=== PATIENT | male | born 1935 | race Caucasian/White ===

== ENCOUNTER 2020-06-19 12:56 | Outpatient (REF) | payer MEDICARE, SELFPAY ==
[2020-06-19 13:34] LABS: Basophils Percent Auto 0.5 % (0-2); Eosinophils Absolute Auto 0.1 X10*3/uL (0.0-0.4); Eosinophils Percent Auto 1.6 % (0-4); Hematocrit 40.8 % (42-52); Imm Gran Abs Auto 0.01 X10*3/uL (0.00-0.03); Imm Gran Pct Auto 0.3 % (0.0-0.4); Lymphocytes Absolute Auto 0.6 X10*3/uL (1.2-4.9); Lymphocytes Percent Auto 15.7 % (20-40); MANUAL DIFF FLAG SCAN; Mean Corpuscular HGB Conc 34.3 g/dl (31.0-36.0); Mean Corpuscular Hemoglobin 33.7 pg (27.0-33.0); Mean Corpuscular Volume 98.1 fL (80-98); Mean Platelet Volume 10.1 fL (9.4-12.4); Monocytes Absolute Auto 0.3 X10*3/uL (0.1-1.2); Monocytes Percent Auto 7.8 % (2-11); Neutrophils Absolute Auto 2.8 X10*3/uL (2.0-8.3); Neutrophils Percent Auto 74.1 % (45-73); Red Blood Count 4.16 X10*6/uL (4.60-5.80); Red Cell Distribution Width 15.3 % (11.0-16.0); SCAN SMEAR FLAG 1; White Blood Count 3.8 X10*3/uL (4.8-10.8)
[2020-06-19 13:46] LABS: Platelet Count 71 X10*3/uL (160-400)
[2020-06-19 14:08] LABS: Alanine Aminotransferase 12 U/L (0-40); Albumin Level 4.4 g/dL (3.5-5.0); Alkaline Phosphatase 84 U/L (39-117); Anion Gap 9 (12-20); Aspartate Amino Transferase 20 U/L (5-37); Bilirubin Total 0.8 mg/dL (0.0-1.0); Blood Urea Nitrogen 28 mg/dL (9-16); Calcium 8.9 mg/dL (8.4-10.2); Carbon Dioxide 31 mmol/L (22-29); Chloride 105 mmol/L (96-108); Estimated Glomerular Filt Rate 35; Glucose Random 97 mg/dL (60-115); Lactate Dehydrogenase 238 U/L (118-273); Potassium 5.2 mmol/l (3.3-5.1); Sodium 140 mmol/L (135-145); Total Protein 6.2 g/dL (6.5-8.0)
[2020-06-19 14:17] LABS: SLIDE REVIEW VERIFIED
[2020-06-19 14:18] LABS: Prostate Specific Antigen 2.23 ng/mL (<0.05-4.0)
[2020-06-19 14:31] LABS: Erythrocyte Sedimentation Rate 2 MM/HR (0-15)
== END 2020-06-19 12:57 | disposition home or self-care (01) ==
LOC: HO.LAB 12:56
PROVIDERS: PCP Internal Medicine Medical Oncology; Visit Provider Internal Medicine Medical Oncology
DX: C85.83 Other specified types of non-Hodgkin lymphoma, intra-abdominal lymph nodes (principal); N40.1 Benign prostatic hyperplasia with lower urinary tract symptoms
CPT/HCPCS: 36415; 80053; 83615; 84153; 85025; 85652

== ENCOUNTER 2020-11-06 12:37 | Outpatient (REF) | payer MEDICARE, SELFPAY ==
[2020-11-06 13:19] LABS: Basophils Percent Auto 0.3 % (0-2); Eosinophils Absolute Auto 0.1 X10*3/uL (0.0-0.4); Eosinophils Percent Auto 2.1 % (0-4); Hemoglobin 13.7 g/dl (14.0-18.0); Imm Gran Abs Auto 0.01 X10*3/uL (0.00-0.03); Imm Gran Pct Auto 0.3 % (0.0-0.4); Lymphocytes Absolute Auto 0.5 X10*3/uL (1.2-4.9); Lymphocytes Percent Auto 12.6 % (20-40); MANUAL DIFF FLAG SCAN; Mean Corpuscular HGB Conc 32.6 g/dl (31.0-36.0); Mean Corpuscular Hemoglobin 31.6 pg (27.0-33.0); Mean Corpuscular Volume 96.8 fL (80-98); Mean Platelet Volume 9.8 fL (9.4-12.4); Monocytes Absolute Auto 0.2 X10*3/uL (0.1-1.2); Monocytes Percent Auto 6.3 % (2-11); Neutrophils Percent Auto 78.4 % (45-73); Red Blood Count 4.34 X10*6/uL (4.60-5.80); Red Cell Distribution Width 15.6 % (11.0-16.0); SCAN SMEAR FLAG 1; White Blood Count 3.8 X10*3/uL (4.8-10.8)
[2020-11-06 13:33] LABS: Platelet Count 59 X10*3/uL (160-400)
[2020-11-06 13:53] LABS: Alanine Aminotransferase 12 U/L (0-40); Albumin Level 4.2 g/dL (3.5-5.0); Alkaline Phosphatase 83 U/L (39-117); Anion Gap 12 (12-20); Aspartate Amino Transferase 17 U/L (5-37); Bilirubin Total 0.9 mg/dL (0.0-1.0); Blood Urea Nitrogen 27 mg/dL (9-16); Calcium 8.6 mg/dL (8.4-10.2); Carbon Dioxide 27 mmol/L (22-29); Chloride 107 mmol/L (96-108); Cholesterol 99 mg/dL; Estimated Glomerular Filt Rate 37; Glucose Fasting 108 mg/dL (60-99); HDL Cholesterol 39 mg/dL; LDL Cholesterol Calculated 39 mg/dl; Lactate Dehydrogenase 204 U/L (118-273); Sodium 141 mmol/L (135-145); Total Protein 5.9 g/dL (6.5-8.0); Triglycerides 105 mg/dL; Uric Acid 6.7 mg/dL (3.4-7.0)
[2020-11-06 14:10] LABS: SLIDE REVIEW VERIFIED
[2020-11-06 14:19] LABS: Erythrocyte Sedimentation Rate 2 MM/HR (0-15)
== END 2020-11-06 12:38 | disposition home or self-care (01) ==
LOC: HO.LAB 12:37
PROVIDERS: PCP Internal Medicine Medical Oncology; Visit Provider Internal Medicine Medical Oncology
DX: I10 Essential (primary) hypertension (principal); D69.6 Thrombocytopenia, unspecified; N40.1 Benign prostatic hyperplasia with lower urinary tract symptoms
CPT/HCPCS: 36415; 80053; 80061; 83615; 84550; 85025; 85652

== ENCOUNTER 2020-11-11 08:49 | Outpatient (REF) | payer MEDICARE, OTHER, SELFPAY ==
--- NOTE | ~2020-11-11 | CT_ITS ---
EXAMINATION: CT ABDOMEN AND PELVIS WITHOUT CONTRAST CLINICAL INFORMATION: Lymphoma. COMPARISON: CT abdomen and pelvis 04/24/2020 TECHNIQUE: Multidetector volumetric imaging was performed from the superior aspect of the liver through the pubic symphysis with oral contrast only. Sagittal and coronal reformatted images were obtained on the technologist's workstation. This CT examination was performed using dose optimization techniques as appropriate, variously including the following: *Automated exposure control *Adjustment of mA and/or kV according to patient size (this includes techniques or standardized protocols for targeted exams where dose is matched to indication/reason for exam; i.e. extremities or head) *Use of iterative reconstruction technique DLP: 401 mGy-cm FINDINGS: LUNG BASES: The heart size is normal. Mild pectus excavatum deformity of the chest wall is seen. The lung bases are clear. LIVER, GALLBLADDER, AND BILIARY TREE: The liver is normal in size, shape, and attenuation. No focal hepatic lesion or biliary ductal dilatation is present. The gallbladder has been surgically removed. PANCREAS: Unremarkable. SPLEEN: There is moderate splenomegaly with spleen measuring 18 cm in length. ADRENAL GLANDS: Unremarkable. KIDNEYS AND URETERS: The kidneys are normal in size, shape, and attenuation. No hydronephrosis, hydroureter, or calculi seen. No perinephric stranding. BLADDER: Unremarkable. GASTROINTESTINAL TRACT: There is scattered oral contrast, stool and diffuse diverticuli seen throughout the colon without thickening. The small bowel loops are normal caliber. Appendix is not visualized. There is no free air. There is minimal free fluid in the pelvis. No inflammatory process seen. ABDOMINAL WALL: There is a small umbilical hernia containing fat. LYMPH NODES: Small prominent upper retroperitoneal are noted. They are stable compared to 04/24/2020. VASCULAR: Unremarkable. PELVIC VISCERA: The prostate gland is enlarged. OSSEOUS STRUCTURES: There is grade 1 anterolisthesis L4 over L5 and retrolisthesis grade 1, L5 over S1. There is loss of disc height virtually at every disc level with vacuum disc phenomena. CT/CT abdomen pelvis wo con IMPRESSION: Small upper retroperitoneal lymph nodes are stable. Moderate splenomegaly is stable. Diffuse colonic diverticulosis without diverticulitis. Minimal free fluid in the pelvis similar to the previous study.
[2020-11-11] MEDS: Barium Sulfate Oral (Berry) 450 ML ORAL.SUSP 900 ML PO (11:50)
== END 2020-11-11 08:50 | disposition home or self-care (01) ==
LOC: HO.CT 08:49
PROVIDERS: PCP Internal Medicine Medical Oncology; Visit Provider Internal Medicine Medical Oncology
DX: C85.90 Non-Hodgkin lymphoma, unspecified, unspecified site (principal)
CPT/HCPCS: 74176

== ENCOUNTER 2021-02-19 14:00 | Outpatient (REF) | payer MEDICARE, OTHER, SELFPAY ==
[2021-02-19 14:29] LABS: MANUAL DIFF FLAG NO
[2021-02-19 14:33] LABS: Basophils Percent Auto 0.3 % (0-2); Eosinophils Absolute Auto 0.1 X10*3/uL (0.0-0.4); Hematocrit 44.4 % (42-52); Hemoglobin 14.4 g/dl (14.0-18.0); Imm Gran Abs Auto 0.02 X10*3/uL (0.00-0.03); Imm Gran Pct Auto 0.5 % (0.0-0.4); Lymphocytes Absolute Auto 0.6 X10*3/uL (1.2-4.9); Lymphocytes Percent Auto 15.3 % (20-40); Mean Corpuscular HGB Conc 32.4 g/dl (31.0-36.0); Mean Corpuscular Hemoglobin 30.6 pg (27.0-33.0); Mean Corpuscular Volume 94.5 fL (80-98); Mean Platelet Volume 9.1 fL (9.4-12.4); Monocytes Absolute Auto 0.3 X10*3/uL (0.1-1.2); Monocytes Percent Auto 7.1 % (2-11); Neutrophils Absolute Auto 2.9 X10*3/uL (2.0-8.3); Neutrophils Percent Auto 74.8 % (45-73); Red Cell Distribution Width 14.9 % (11.0-16.0); White Blood Count 3.9 X10*3/uL (4.8-10.8)
[2021-02-19 14:34] LABS: Platelet Count 59 X10*3/uL (160-400)
[2021-02-19 15:00] LABS: Alanine Aminotransferase 11 U/L (0-40); Albumin Level 4.4 g/dL (3.5-5.0); Alkaline Phosphatase 98 U/L (39-117); Anion Gap 13 (12-20); Aspartate Amino Transferase 19 U/L (5-37); Blood Urea Nitrogen 27 mg/dL (9-16); Carbon Dioxide 27 mmol/L (22-29); Chloride 108 mmol/L (96-108); Cholesterol 97 mg/dL; Estimated Glomerular Filt Rate 37; Glucose Fasting 98 mg/dL (60-99); HDL Cholesterol 38 mg/dL; LDL Cholesterol Calculated 46 mg/dl; Potassium 5.3 mmol/L (3.3-5.1); Sodium 143 mmol/L (135-145); Total Protein 6.2 g/dL (6.5-8.0); Triglycerides 66 mg/dL
[2021-02-19 15:08] LABS: Lactate Dehydrogenase 205 U/L (118-273)
[2021-02-19 15:16] LABS: Erythrocyte Sedimentation Rate 2 MM/HR (0-15)
== END 2021-02-19 14:01 | disposition home or self-care (01) ==
LOC: HO.LAB 14:00
PROVIDERS: PCP Internal Medicine Medical Oncology; Visit Provider Internal Medicine Medical Oncology
DX: I10 Essential (primary) hypertension (principal); D69.6 Thrombocytopenia, unspecified; C85.90 Non-Hodgkin lymphoma, unspecified, unspecified site
CPT/HCPCS: 36415; 80053; 80061; 83615; 85025; 85652

== ENCOUNTER 2021-05-22 13:31 | Outpatient (REF) | payer MEDICARE, OTHER, SELFPAY ==
[2021-05-22 14:28] LABS: MANUAL DIFF FLAG NO
[2021-05-22 14:31] LABS: Basophils Percent Auto 0.3 % (0-2); Eosinophils Absolute Auto 0.1 X10*3/uL (0.0-0.4); Eosinophils Percent Auto 1.3 % (0-4); Hematocrit 41.4 % (42-52); Hemoglobin 13.9 g/dl (14.0-18.0); Imm Gran Abs Auto 0.01 X10*3/uL (0.00-0.03); Imm Gran Pct Auto 0.3 % (0.0-0.4); Lymphocytes Absolute Auto 0.6 X10*3/uL (1.2-4.9); Lymphocytes Percent Auto 16.1 % (20-40); Mean Corpuscular HGB Conc 33.6 g/dl (31.0-36.0); Mean Corpuscular Volume 95.4 fL (80-98); Mean Platelet Volume 10.7 fL (9.4-12.4); Monocytes Absolute Auto 0.3 X10*3/uL (0.1-1.2); Monocytes Percent Auto 7.8 % (2-11); Neutrophils Absolute Auto 2.9 X10*3/uL (2.0-8.3); Neutrophils Percent Auto 74.2 % (45-73); Red Blood Count 4.34 X10*6/uL (4.60-5.80); Red Cell Distribution Width 15.5 % (11.0-16.0); White Blood Count 3.8 X10*3/uL (4.8-10.8)
[2021-05-22 14:34] LABS: Platelet Count 59 X10*3/uL (160-400)
[2021-05-22 15:37] LABS: Alanine Aminotransferase 17 U/L (0-40); Albumin Level 4.3 g/dL (3.5-5.0); Alkaline Phosphatase 93 U/L (39-117); Anion Gap 11 (12-20); Aspartate Amino Transferase 22 U/L (5-37); Blood Urea Nitrogen 27 mg/dL (9-16); Calcium 8.7 mg/dL (8.4-10.2); Carbon Dioxide 27 mmol/L (22-29); Chloride 107 mmol/L (96-108); Cholesterol 91 mg/dL; Estimated Glomerular Filt Rate 36; Glucose Fasting 97 mg/dL (60-99); HDL Cholesterol 37 mg/dL; LDL Cholesterol Calculated 43 mg/dl; Lactate Dehydrogenase 223 U/L (118-273); Potassium 4.9 mmol/L (3.3-5.1); Sodium 140 mmol/L (135-145); Total Protein 5.8 g/dL (6.5-8.0); Triglycerides 57 mg/dL; Uric Acid 6.7 mg/dL (3.4-7.0)
[2021-05-22 15:45] LABS: Erythrocyte Sedimentation Rate 2 MM/HR (0-15)
== END 2021-05-22 13:32 | disposition home or self-care (01) ==
LOC: HO.LAB 13:31
PROVIDERS: PCP Internal Medicine Medical Oncology; Visit Provider Internal Medicine Medical Oncology
DX: I10 Essential (primary) hypertension (principal); D69.6 Thrombocytopenia, unspecified; N40.1 Benign prostatic hyperplasia with lower urinary tract symptoms
CPT/HCPCS: 36415; 80053; 80061; 83615; 84550; 85025; 85652

== ENCOUNTER 2021-06-03 12:20 | Outpatient (REF) | payer MEDICARE, OTHER, SELFPAY ==
--- NOTE | ~2021-06-03 | CT_ITS ---
EXAMINATION: CT ABDOMEN AND PELVIS WITHOUT CONTRAST CLINICAL INFORMATION: Lymphoma. COMPARISON: None TECHNIQUE: Multidetector volumetric imaging was performed from the superior aspect of the liver through the pubic symphysis. Sagittal and coronal reformatted images were obtained on the technologist's workstation. This CT examination was performed using dose optimization techniques as appropriate, variously including the following: *Automated exposure control *Adjustment of mA and/or kV according to patient size (this includes techniques or standardized protocols for targeted exams where dose is matched to indication/reason for exam; i.e. extremities or head) *Use of iterative reconstruction technique DLP: 404 mGy-cm FINDINGS: LUNG BASES: Minimal atelectatic changes seen in the right middle lobe. The heart size is normal. There is minimal pericardial effusion. LIVER, GALLBLADDER, AND BILIARY TREE: The liver is normal in size, shape, and attenuation. No focal hepatic lesion or biliary ductal dilatation is present. The gallbladder has been surgically removed. PANCREAS: The pancreas is homogeneous in density and appears unremarkable. SPLEEN: The spleen is significantly enlarged measuring 9 cm in craniocaudad length. There is moderate mass effect and shift of the left kidney towards midline.. ADRENAL GLANDS: Unremarkable. KIDNEYS AND URETERS: The kidneys are normal in size, shape, and attenuation. No hydronephrosis, hydroureter, or calculi seen. No perinephric stranding. The left kidney is shifted to the midline from splenomegaly. BLADDER: The bladder is empty with mild bladder wall thickening seen. GASTROINTESTINAL TRACT: There is diffuse colonic diverticulosis without definite colitis. There is scattered stool in colon. The small bowel loops are normal caliber. Appendix is not seen with certainty. ABDOMINAL WALL: No significant hernia is appreciated. LYMPH NODES: There are numerous lymph nodes seen in the retroperitoneum, similar size and number compared to previous study. VASCULAR: Mild arthroscopic changes of abdominal aorta and common hepatic arteries are noted. PELVIC VISCERA: No free fluid seen. The prostate gland is normal. OSSEOUS STRUCTURES: There are degenerative disc changes throughout lumbar spine with grade 1 anterolisthesis L4-L5. CT/CT abdomen pelvis wo con IMPRESSION: Diffuse colonic diverticulosis without diverticulitis. Diffuse prominent reticular lymph nodes similar to previous study from 11/11/2020. Moderate splenomegaly with shift of kidney towards the midline.
== END 2021-06-03 12:21 | disposition home or self-care (01) ==
LOC: HO.CT 12:20
PROVIDERS: PCP Internal Medicine Medical Oncology; Visit Provider Internal Medicine Medical Oncology
DX: C85.90 Non-Hodgkin lymphoma, unspecified, unspecified site (principal)
CPT/HCPCS: 74176

== ENCOUNTER 2021-09-10 12:49 | Outpatient (REF) | payer MEDICARE, OTHER, SELFPAY ==
[2021-09-10 13:17] LABS: MANUAL DIFF FLAG NO
[2021-09-10 13:51] LABS: Basophils Percent Auto 0.3 % (0-2); Eosinophils Absolute Auto 0.1 X10*3/uL (0.0-0.4); Eosinophils Percent Auto 1.5 % (0-4); Hematocrit 42.5 % (42.0-52.0); Hemoglobin 13.8 g/dl (14.0-18.0); Imm Gran Abs Auto 0.02 X10*3/uL (0.00-0.03); Imm Gran Pct Auto 0.6 % (0.0-0.4); Lymphocytes Absolute Auto 0.6 X10*3/uL (1.2-4.9); Lymphocytes Percent Auto 16.6 % (20-40); Mean Corpuscular HGB Conc 32.5 g/dl (31.0-36.0); Mean Corpuscular Hemoglobin 30.6 pg (27.0-33.0); Mean Corpuscular Volume 94.2 fL (80.0-98.0); Mean Platelet Volume 10.7 fL (9.4-12.4); Monocytes Absolute Auto 0.2 X10*3/uL (0.1-1.2); Monocytes Percent Auto 6.9 % (2-11); Neutrophils Absolute Auto 2.5 x10*3/uL (2.0-8.3); Neutrophils Percent Auto 74.1 % (45-73); Red Blood Count 4.51 X10*6/uL (4.60-5.80); Red Cell Distribution Width 15.2 % (11.0-16.0); White Blood Count 3.3 X10*3/uL (4.8-10.8)
[2021-09-10 13:52] LABS: Platelet Count 62 X10*3/uL (160-400)
[2021-09-10 14:39] LABS: Alanine Aminotransferase 17 U/L (0-40); Albumin Level 4.3 g/dL (3.5-5.0); Alkaline Phosphatase 100 U/L (39-117); Anion Gap 12 (12-20); Aspartate Amino Transferase 22 U/L (5-37); Bilirubin Total 0.9 mg/dL (0.0-1.0); Blood Urea Nitrogen 28 mg/dL (9-16); Calcium 9.2 mg/dL (8.4-10.2); Carbon Dioxide 27 mmol/L (22-29); Chloride 108 mmol/L (96-108); Cholesterol 102 mg/dL; Estimated Glomerular Filt Rate 33; Glucose Fasting 97 mg/dL (60-99); HDL Cholesterol 35 mg/dL; LDL Cholesterol Calculated 53 mg/dl; Lactate Dehydrogenase 221 U/L (118-273); Potassium 4.9 mmol/L (3.3-5.1); Sodium 142 mmol/L (135-145); Total Protein 6.1 g/dL (6.5-8.0); Triglycerides 72 mg/dL
[2021-09-10 14:45] LABS: Erythrocyte Sedimentation Rate 2 MM/HR (0-15); Prostate Specific Antigen 2.01 ng/mL (<0.05-4.0)
== END 2021-09-10 12:50 | disposition home or self-care (01) ==
LOC: HO.LAB 12:49
PROVIDERS: PCP Internal Medicine Medical Oncology; Visit Provider Internal Medicine Medical Oncology
DX: Z12.5 Encounter for screening for malignant neoplasm of prostate (principal); I10 Essential (primary) hypertension; D69.6 Thrombocytopenia, unspecified; C85.83 Other specified types of non-Hodgkin lymphoma, intra-abdominal lymph nodes; N40.1 Benign prostatic hyperplasia with lower urinary tract symptoms; E66.3 Overweight
CPT/HCPCS: 36415; 80053; 80061; 83615; 84153; 85025; 85652

== ENCOUNTER 2021-11-12 14:14 | Outpatient (REF) | payer MEDICARE, OTHER, SELFPAY ==
[2021-11-12 14:39] LABS: MANUAL DIFF FLAG NO
[2021-11-12 14:44] LABS: Basophils Percent Auto 0.4 % (0-2); Eosinophils Percent Auto 1.7 % (0-4); Hematocrit 39.9 % (42.0-52.0); Hemoglobin 12.5 g/dl (14.0-18.0); Lymphocytes Absolute Auto 0.7 X10*3/uL (1.2-4.9); Lymphocytes Percent Auto 32.3 % (20-40); Mean Corpuscular HGB Conc 31.3 g/dl (31.0-36.0); Mean Corpuscular Hemoglobin 29.5 pg (27.0-33.0); Mean Corpuscular Volume 94.1 fL (80.0-98.0); Mean Platelet Volume 9.5 fL (9.4-12.4); Monocytes Absolute Auto 0.2 X10*3/uL (0.1-1.2); Monocytes Percent Auto 9.6 % (2-11); Neutrophils Absolute Auto 1.3 x10*3/uL (2.0-8.3); Red Blood Count 4.24 X10*6/uL (4.60-5.80); Red Cell Distribution Width 15.7 % (11.0-16.0); SCAN SMEAR FLAG 1
[2021-11-12 14:45] LABS: Platelet Count 54 X10*3/uL (160-400); White Blood Count 2.3 X10*3/uL (4.8-10.8)
[2021-11-12 15:17] LABS: Alanine Aminotransferase 15 U/L (0-40); Albumin Level 4.1 g/dL (3.5-5.0); Alkaline Phosphatase 108 U/L (39-117); Anion Gap 11 (12-20); Aspartate Amino Transferase 23 U/L (5-37); Blood Urea Nitrogen 29 mg/dL (9-16); Calcium 8.9 mg/dL (8.4-10.2); Carbon Dioxide 29 mmol/L (22-29); Chloride 106 mmol/L (96-108); Estimated Glomerular Filt Rate 39; Glucose Fasting 108 mg/dL (60-99); HDL Cholesterol 28 mg/dL; Lactate Dehydrogenase 277 U/L (118-273); Sodium 141 mmol/L (135-145); Total Protein 5.9 g/dL (6.5-8.0); Triglycerides 69 mg/dL; Uric Acid 6.5 mg/dL (3.4-7.0)
[2021-11-12 15:23] LABS: Erythrocyte Sedimentation Rate 4 MM/HR (0-15)
[2021-11-12 15:32] LABS: Cholesterol 95 mg/dL; LDL Cholesterol Calculated 54 mg/dl
[2021-11-12 15:38] LABS: PSA,Total (Free>4and<10) 1.96 ng/mL (0.00-4.00)
== END 2021-11-12 14:15 | disposition home or self-care (01) ==
LOC: HO.LAB 14:14
PROVIDERS: PCP Internal Medicine Medical Oncology; Visit Provider Internal Medicine Medical Oncology
DX: I10 Essential (primary) hypertension (principal); D69.6 Thrombocytopenia, unspecified; N40.1 Benign prostatic hyperplasia with lower urinary tract symptoms; Z12.5 Encounter for screening for malignant neoplasm of prostate
CPT/HCPCS: 36415; 80053; 80061; 83615; 84153; 84550; 85025; 85652

== ENCOUNTER 2021-12-03 09:15 | Outpatient (REF) | payer MEDICARE, OTHER, SELFPAY ==
--- NOTE | ~2021-12-03 | CT_ITS ---
EXAMINATION: CT ABDOMEN AND PELVIS WITHOUT CONTRAST CLINICAL INFORMATION: Marginal zone lymphoma COMPARISON: Previous CT of the abdomen and pelvis most recent May 2021 TECHNIQUE: Multidetector volumetric imaging was performed from the superior aspect of the liver through the pubic symphysis. Sagittal and coronal reformatted images were obtained on the technologist's workstation. This CT examination was performed using dose optimization techniques as appropriate, variously including the following: *Automated exposure control *Adjustment of mA and/or kV according to patient size (this includes techniques or standardized protocols for targeted exams where dose is matched to indication/reason for exam; i.e. extremities or head) *Use of iterative reconstruction technique DLP: 430 mGy-cm FINDINGS: LUNG BASES: The visualized lung bases are unremarkable. LIVER, GALLBLADDER, AND BILIARY TREE: The liver is normal in size, shape, and attenuation. No focal hepatic lesion or biliary ductal dilatation is present. The gallbladder has been removed. PANCREAS: Unremarkable. SPLEEN: The spleen is enlarged and measures 21.5 cm in length. This may be slightly increased in size from 19 cm on most recent exam May 2021 this causes mass effect and displaces the left kidney. ADRENAL GLANDS: Unremarkable. KIDNEYS AND URETERS: The kidneys are normal in size, shape, and attenuation. No hydronephrosis, hydroureter, or calculi seen. There is a subcentimeter high attenuation lesion exophytic to the left kidney that is stable and probably represents a hyperdense cyst.. BLADDER: Unremarkable. GASTROINTESTINAL TRACT: There is mild diverticulosis of the colon. No evidence of diverticulitis is seen. The small and large bowel are otherwise unremarkable. The appendix is is not seen. The stomach is not optimally distended. ABDOMINAL WALL: There is a left inguinal hernia containing fat and colon. LYMPH NODES: There is slight interval increase in retroperitoneal lymph nodes. Largest lymph nodes are a left periaortic lymph node measuring 2.3 x 3.1 cm in transverse and longitudinal dimension coronal reconstructed image 71 compared to 1.5 x 2.5 cm on previous exam. There are also small lymph nodes seen surrounding the tail of the pancreas and spleen that appear increased. Largest lymph node measures 1 cm axial image 37 series 3 and is new from previous exam. VASCULAR: There is evidence of atherosclerotic disease. PELVIC VISCERA: The prostate gland is slightly enlarged. There is a new small amount of ascites in the pelvis. OSSEOUS STRUCTURES: 4 and S1. There are degenerative changes of the spine and hip joints. CT/CT abdomen pelvis wo con IMPRESSION: Enlarged spleen and enlarged retroperitoneal lymph nodes slightly increased from most recent exam May 2021. Increasing lymphadenopathy adjacent to the tail the pancreas and spleen. New small amount of ascites in the pelvis. Fleischner guidelines were followed.
--- NOTE | ~2021-12-03 | XR_ITS ---
EXAMINATION: XR CHEST CLINICAL INFORMATION: Marginal zone lymphoma COMPARISON: Previous chest x-ray most recent February 2018 TECHNIQUE: 2 views of the chest were obtained. FINDINGS: The cardiac and mediastinal contours are stable. The lungs are clear. There is no pleural effusion or pneumothorax. There are degenerative changes of the spine. There are surgical clips in the right axilla. XR/XR chest 2V IMPRESSION: No evidence for acute disease in the chest.
[2021-12-03] MEDS: Barium Sulfate Oral (Berry) 450 ML ORAL.SUSP 900 ML PO (11:37)
== END 2021-12-03 09:16 | disposition home or self-care (01) ==
LOC: HO.CT 09:15
PROVIDERS: PCP Internal Medicine Medical Oncology; Visit Provider Internal Medicine Medical Oncology
DX: C85.83 Other specified types of non-Hodgkin lymphoma, intra-abdominal lymph nodes (principal)
CPT/HCPCS: 71046; 74176

== ENCOUNTER 2022-01-25 13:23 | Outpatient (REF) | payer MEDICARE, OTHER, SELFPAY ==
[2022-01-25 13:50] LABS: MANUAL DIFF FLAG NO
[2022-01-25 13:57] LABS: Basophils Percent Auto 0.4 % (0-2); Eosinophils Percent Auto 0.7 % (0-4); Hematocrit 37.6 % (42.0-52.0); Hemoglobin 11.9 g/dl (14.0-18.0); Imm Gran Abs Auto 0.01 X10*3/uL (0.00-0.03); Imm Gran Pct Auto 0.4 % (0.0-0.4); Lymphocytes Absolute Auto 0.5 X10*3/uL (1.2-4.9); Lymphocytes Percent Auto 17.5 % (20-40); Mean Corpuscular HGB Conc 31.6 g/dl (31.0-36.0); Mean Corpuscular Volume 91.7 fL (80.0-98.0); Mean Platelet Volume 9.7 fL (9.4-12.4); Monocytes Absolute Auto 0.2 X10*3/uL (0.1-1.2); Monocytes Percent Auto 7.5 % (2-11); Neutrophils Percent Auto 73.5 % (45-73); Red Cell Distribution Width 15.4 % (11.0-16.0); White Blood Count 2.7 X10*3/uL (4.8-10.8)
[2022-01-25 13:58] LABS: Platelet Count 52 X10*3/uL (160-400)
[2022-01-25 14:27] LABS: Alanine Aminotransferase 20 U/L (0-40); Albumin Level 4.1 g/dL (3.5-5.0); Alkaline Phosphatase 109 U/L (39-117); Anion Gap 11 (12-20); Aspartate Amino Transferase 25 U/L (5-37); Bilirubin Total 0.8 mg/dL (0.0-1.0); Blood Urea Nitrogen 24 mg/dL (9-16); Carbon Dioxide 27 mmol/L (22-29); Chloride 107 mmol/L (96-108); Estimated Glomerular Filt Rate 30; Glucose Random 104 mg/dL (60-115); Lactate Dehydrogenase 241 U/L (118-273); Potassium 5.4 mmol/L (3.3-5.1); Sodium 140 mmol/L (135-145); Total Protein 5.9 g/dL (6.5-8.0)
[2022-01-25 14:44] LABS: Erythrocyte Sedimentation Rate 6 MM/HR (0-15)
== END 2022-01-25 13:24 | disposition home or self-care (01) ==
LOC: HO.LAB 13:23
PROVIDERS: PCP Internal Medicine Medical Oncology; Visit Provider Internal Medicine Medical Oncology
DX: D69.6 Thrombocytopenia, unspecified (principal); C85.83 Other specified types of non-Hodgkin lymphoma, intra-abdominal lymph nodes
CPT/HCPCS: 36415; 80053; 83615; 85025; 85652

== ENCOUNTER 2022-03-29 13:23 | Outpatient (REF) | payer MEDICARE, OTHER, SELFPAY ==
--- NOTE | ~2022-03-29 | CT_ITS ---
EXAMINATION: CT ABDOMEN AND PELVIS WITH CONTRAST CLINICAL INFORMATION: Lymphoma. COMPARISON: CT abdomen 12/03/2021. TECHNIQUE: Multidetector volumetric images were obtained from the superior aspect of the liver through the pubic symphysis following administration 85 mL of Omnipaque 350 intravenous contrast. Sagittal and coronal reformatted images were obtained on the technologist's workstation. Oral contrast: No. This CT examination was performed using dose optimization techniques as appropriate, variously including the following: *Automated exposure control *Adjustment of mA and/or kV according to patient size (this includes techniques or standardized protocols for targeted exams where dose is matched to indication/reason for exam; i.e. extremities or head) *Use of iterative reconstruction technique DLP: 439 mGy-cm FINDINGS: LUNG BASES: The lung bases are clear. LIVER, GALLBLADDER, AND BILIARY TREE: The liver is normal in size, shape, and attenuation. No focal hepatic lesion or intrahepatic biliary ductal dilatation is present. The gallbladder has been surgically removed. The proximal CBD measures 1.2 cm. PANCREAS: Unremarkable. SPLEEN: The spleen is enlarged measuring 18.6 cm in length. Previously, it measured 21.5 cm. ADRENAL GLANDS: Unremarkable. KIDNEYS AND URETERS: The left kidney has been shifted medially and anteriorly from underlying splenomegaly. Otherwise, both kidneys have normal cortical nephrogram. No radiopaque renal calculi, cyst, solid mass, or hydronephrosis is seen. BLADDER: The bladder is nondistended with mild anterior bladder wall thickening. GASTROINTESTINAL TRACT: There is scattered stool, diverticula and gas seen throughout the colon without distention. Oral contrast opacified small bowel loops are normal caliber. The appendix is not seen. ABDOMINAL WALL: No significant hernia is appreciated. LYMPH NODES: Again visualized are retroperitoneal lymph nodes which are smaller in size compared to 02/02/2022. For example, the largest left para-aortic lymph node measures 1.5 cm on axial image 35/3. Previously, the same lymph node measured 2.2 cm on axial image 33/3 CT 12/03/2021. The lymph node inferior to this one in the left para-aortic space measures 1.5 cm. Previously, it measured 1.9 cm on axial image 38/3 on present exam and axial image 36/3 on the previous exam. There are small mesenteric lymph nodes which have improved in size. VASCULAR: There are atherosclerotic changes of abdominal aorta without aneurysmal dilatation. PELVIC VISCERA: There is mild prostate enlargement. The periprostatic fat planes are preserved. Small ascites seen previously has improved. OSSEOUS STRUCTURES: There are degenerative disc changes at all lumbar and lower dorsal spine. There is grade 1 retrolisthesis at L5 over S1 and grade 1 anterolisthesis at L4 over L5. No aggressive lytic or sclerotic process seen. CT/CT abdomen pelvis w con IMPRESSION: Retroperitoneal and mesenteric lymphadenopathy has improved since 12/03/2021. The lymph nodes and tail of pancreas have significantly improved. There is splenomegaly but improved in size since the previous study. Fleischner guidelines were followed.
[2022-03-29] MEDS: Barium Sulfate Oral (Vanilla) 450 ML ORAL.SUSP 900 ML PO (17:37)
[2022-03-29] MEDS: iohexoL 350 MG/ML 100 ML INFUS..BTL IV (17:38)
== END 2022-03-29 13:24 | disposition home or self-care (01) ==
LOC: HO.CT 13:23
PROVIDERS: PCP Internal Medicine Medical Oncology; Visit Provider Internal Medicine
DX: C85.90 Non-Hodgkin lymphoma, unspecified, unspecified site (principal)
CPT/HCPCS: 74177; Q9967

== ENCOUNTER 2022-05-03 13:52 | Outpatient (REF) | payer MEDICARE, OTHER, SELFPAY ==
[2022-05-03 14:16] LABS: MANUAL DIFF FLAG NO
[2022-05-03 15:07] LABS: Basophils Percent Auto 0.5 % (0-2); Eosinophils Absolute Auto 0.1 X10*3/uL (0.0-0.4); Eosinophils Percent Auto 3.1 % (0-4); Hematocrit 37.9 % (42.0-52.0); Hemoglobin 12.5 g/dl (14.0-18.0); Imm Gran Abs Auto 0.06 X10*3/uL (0.00-0.03); Imm Gran Pct Auto 1.4 % (0.0-0.4); Lymphocytes Absolute Auto 0.6 X10*3/uL (1.2-4.9); Lymphocytes Percent Auto 13.2 % (20-40); Mean Corpuscular Hemoglobin 30.3 pg (27.0-33.0); Mean Platelet Volume 9.8 fL (9.4-12.4); Monocytes Absolute Auto 0.3 X10*3/uL (0.1-1.2); Monocytes Percent Auto 6.4 % (2-11); Neutrophils Absolute Auto 3.2 x10*3/uL (2.0-8.3); Neutrophils Percent Auto 75.4 % (45-73); Red Blood Count 4.12 X10*6/uL (4.60-5.80); Red Cell Distribution Width 19.2 % (11.0-16.0); White Blood Count 4.2 X10*3/uL (4.8-10.8)
[2022-05-03 15:19] LABS: Platelet Count 69 X10*3/uL (160-400)
[2022-05-03 15:31] LABS: Alanine Aminotransferase 9 U/L (0-40); Albumin Level 4.1 g/dL (3.5-5.0); Alkaline Phosphatase 99 U/L (39-117); Anion Gap 14 (12-20); Aspartate Amino Transferase 16 U/L (5-37); Blood Urea Nitrogen 26 mg/dL (9-16); Calcium 8.8 mg/dL (8.4-10.2); Carbon Dioxide 28 mmol/L (22-29); Chloride 106 mmol/L (96-108); Estimated Glomerular Filt Rate 38; Glucose Random 119 mg/dL (60-115); Potassium 4.9 mmol/L (3.3-5.1); Sodium 143 mmol/L (135-145); Total Protein 5.7 g/dL (6.5-8.0)
[2022-05-03 16:05] LABS: Erythrocyte Sedimentation Rate 3 MM/HR (0-15)
== END 2022-05-03 13:53 | disposition home or self-care (01) ==
LOC: HO.LAB 13:52
PROVIDERS: PCP Internal Medicine Medical Oncology; Visit Provider Internal Medicine Medical Oncology
DX: Z00.00 Encounter for general adult medical examination without abnormal findings (principal); D69.6 Thrombocytopenia, unspecified; C85.83 Other specified types of non-Hodgkin lymphoma, intra-abdominal lymph nodes
CPT/HCPCS: 36415; 80053; 85025; 85652

== ENCOUNTER 2022-07-09 11:44 | Outpatient (REF) | payer MEDICARE, OTHER, SELFPAY ==
[2022-07-09 11:58] LABS: MANUAL DIFF FLAG NO
[2022-07-09 12:10] LABS: Basophils Percent Auto 0.2 % (0-2); Eosinophils Absolute Auto 0.2 X10*3/uL (0.0-0.4); Eosinophils Percent Auto 2.4 % (0-4); Hematocrit 37.4 % (42.0-52.0); Hemoglobin 12.7 g/dl (14.0-18.0); Imm Gran Abs Auto 0.03 X10*3/uL (0.00-0.03); Imm Gran Pct Auto 0.5 % (0.0-0.4); Lymphocytes Absolute Auto 0.6 X10*3/uL (1.2-4.9); Mean Corpuscular Hemoglobin 32.2 pg (27.0-33.0); Mean Corpuscular Volume 94.7 fL (80.0-98.0); Mean Platelet Volume 8.5 fL (9.4-12.4); Monocytes Absolute Auto 0.4 X10*3/uL (0.1-1.2); Monocytes Percent Auto 5.6 % (2-11); Neutrophils Absolute Auto 5.1 x10*3/uL (2.0-8.3); Neutrophils Percent Auto 81.3 % (45-73); Red Blood Count 3.95 X10*6/uL (4.60-5.80); Red Cell Distribution Width 17.4 % (11.0-16.0); White Blood Count 6.2 X10*3/uL (4.8-10.8)
[2022-07-09 12:12] LABS: Platelet Count 63 X10*3/uL (160-400)
[2022-07-09 12:54] LABS: Erythrocyte Sedimentation Rate 2 MM/HR (0-15)
[2022-07-09 14:36] LABS: Alanine Aminotransferase 12 U/L (0-40); Albumin Level 4.4 g/dL (3.5-5.0); Alkaline Phosphatase 108 U/L (39-117); Anion Gap 16 (12-20); Aspartate Amino Transferase 17 U/L (5-37); Bilirubin Total 1.2 mg/dL (0.0-1.0); Blood Urea Nitrogen 29 mg/dL (9-16); Carbon Dioxide 25 mmol/L (22-29); Chloride 105 mmol/L (96-108); Estimated Glomerular Filt Rate 35; Glucose Random 99 mg/dL (60-115); Lactate Dehydrogenase 225 U/L (118-273); Potassium 5.2 mmol/L (3.3-5.1); Sodium 141 mmol/L (135-145); Total Protein 6.1 g/dL (6.5-8.0)
== END 2022-07-09 11:45 | disposition home or self-care (01) ==
LOC: HO.LAB 11:44
PROVIDERS: PCP Internal Medicine Medical Oncology; Visit Provider Internal Medicine Medical Oncology
DX: I10 Essential (primary) hypertension (principal); D69.6 Thrombocytopenia, unspecified
CPT/HCPCS: 36415; 80053; 83615; 85025; 85652

== ENCOUNTER 2022-09-08 15:03 | Outpatient (REF) | payer MEDICARE, OTHER, SELFPAY ==
[2022-09-08 16:00] LABS: Basophils Percent Auto 0.3 % (0-2); Hematocrit 38.3 % (42.0-52.0); Mean Platelet Volume 9.8 fL (9.4-12.4); PLT CLUMP 1; Red Cell Distribution Width 17.2 % (11.0-16.0); SCAN SMEAR FLAG 1
[2022-09-08 16:02] LABS: Eosinophils Absolute Auto 0.1 X10*3/uL (0.0-0.4); Eosinophils Percent Auto 1.9 % (0-4); Hemoglobin 12.7 g/dl (14.0-18.0); Imm Gran Abs Auto 0.02 X10*3/uL (0.00-0.03); Imm Gran Pct Auto 0.3 % (0.0-0.4); Lymphocytes Absolute Auto 0.5 X10*3/uL (1.2-4.9); Lymphocytes Percent Auto 8.6 % (20-40); Mean Corpuscular HGB Conc 33.2 g/dl (31.0-36.0); Mean Corpuscular Hemoglobin 31.8 pg (27.0-33.0); Mean Corpuscular Volume 95.8 fL (80.0-98.0); Monocytes Absolute Auto 0.4 X10*3/uL (0.1-1.2); Monocytes Percent Auto 6.1 % (2-11); Neutrophils Absolute Auto 4.9 x10*3/uL (2.0-8.3); Neutrophils Percent Auto 82.8 % (45-73)
[2022-09-08 16:12] LABS: MANUAL DIFF FLAG NO; Platelet Count 88 X10*3/uL (160-400); White Blood Count 5.9 X10*3/uL (4.8-10.8)
[2022-09-08 16:26] LABS: Alanine Aminotransferase 8 U/L (0-40); Albumin Level 4.2 g/dL (3.5-5.0); Alkaline Phosphatase 107 U/L (39-117); Anion Gap 11 (12-20); Aspartate Amino Transferase 15 U/L (5-37); Bilirubin Total 1.1 mg/dL (0.0-1.0); Blood Urea Nitrogen 33 mg/dL (9-16); Calcium 8.9 mg/dL (8.4-10.2); Carbon Dioxide 28 mmol/L (22-29); Chloride 108 mmol/L (96-108); Estimated Glomerular Filt Rate 38; Glucose Random 124 mg/dL (60-115); Lactate Dehydrogenase 226 U/L (118-273); Potassium 4.6 mmol/L (3.3-5.1); Sodium 142 mmol/L (135-145); Total Protein 5.9 g/dL (6.5-8.0)
[2022-09-08 16:57] LABS: Erythrocyte Sedimentation Rate 5 MM/HR (0-15)
== END 2022-09-08 15:04 | disposition home or self-care (01) ==
LOC: HO.LAB 15:03
PROVIDERS: PCP Internal Medicine Medical Oncology; Visit Provider Internal Medicine Medical Oncology
DX: D69.6 Thrombocytopenia, unspecified (principal); D61.818 Other pancytopenia; C85.83 Other specified types of non-Hodgkin lymphoma, intra-abdominal lymph nodes
CPT/HCPCS: 36415; 80053; 83615; 85025; 85652

== ENCOUNTER 2022-11-12 14:04 | Outpatient (REF) | payer MEDICARE, OTHER, SELFPAY ==
[2022-11-12 14:16] LABS: MANUAL DIFF FLAG NO
[2022-11-12 15:04] LABS: Basophils Percent Auto 0.4 % (0-2); Eosinophils Absolute Auto 0.1 X10*3/uL (0.0-0.4); Eosinophils Percent Auto 2.1 % (0-4); Hematocrit 43.1 % (42.0-52.0); Hemoglobin 14.4 g/dl (14.0-18.0); Imm Gran Abs Auto 0.03 X10*3/uL (0.00-0.03); Imm Gran Pct Auto 0.4 % (0.0-0.4); Lymphocytes Absolute Auto 0.9 X10*3/uL (1.2-4.9); Lymphocytes Percent Auto 13.2 % (20-40); Mean Corpuscular HGB Conc 33.4 g/dl (31.0-36.0); Mean Corpuscular Hemoglobin 31.1 pg (27.0-33.0); Mean Corpuscular Volume 93.1 fL (80.0-98.0); Mean Platelet Volume 10.2 fL (9.4-12.4); Monocytes Absolute Auto 0.6 X10*3/uL (0.1-1.2); Monocytes Percent Auto 8.1 % (2-11); Neutrophils Absolute Auto 5.2 x10*3/uL (2.0-8.3); Neutrophils Percent Auto 75.8 % (45-73); Platelet Count 79 X10*3/uL (160-400); Red Blood Count 4.63 X10*6/uL (4.60-5.80); Red Cell Distribution Width 16.5 % (11.0-16.0); White Blood Count 6.8 X10*3/uL (4.8-10.8)
[2022-11-12 15:48] LABS: Erythrocyte Sedimentation Rate 2 MM/HR (0-15)
[2022-11-12 16:10] LABS: Alanine Aminotransferase 11 U/L (0-40); Albumin Level 4.2 g/dL (3.5-5.0); Alkaline Phosphatase 121 U/L (39-117); Anion Gap 13 (12-20); Aspartate Amino Transferase 18 U/L (5-37); Bilirubin Total 1.1 mg/dL (0.0-1.0); Blood Urea Nitrogen 32 mg/dL (9-16); Calcium 8.5 mg/dL (8.4-10.2); Carbon Dioxide 27 mmol/L (22-29); Chloride 107 mmol/L (96-108); Estimated Glomerular Filt Rate 41; Glucose Fasting 76 mg/dL (60-99); Lactate Dehydrogenase 205 U/L (118-273); Potassium 4.8 mmol/L (3.3-5.1); Sodium 142 mmol/L (135-145); Total Protein 5.9 g/dL (6.5-8.0)
== END 2022-11-12 14:05 | disposition home or self-care (01) ==
LOC: HO.LAB 14:04
PROVIDERS: PCP Internal Medicine Medical Oncology; Visit Provider Internal Medicine Medical Oncology
DX: I10 Essential (primary) hypertension (principal); C85.83 Other specified types of non-Hodgkin lymphoma, intra-abdominal lymph nodes
CPT/HCPCS: 36415; 80053; 83615; 85025; 85652

== ENCOUNTER 2023-01-11 13:08 | Outpatient (REF) | payer MEDICARE, OTHER, SELFPAY ==
[2023-01-11 13:25] LABS: MANUAL DIFF FLAG NO
[2023-01-11 14:56] LABS: Basophils Percent Auto 0.5 % (0-2); Eosinophils Absolute Auto 0.1 X10*3/uL (0.0-0.4); Eosinophils Percent Auto 1.9 % (0-4); Hematocrit 41.8 % (42.0-52.0); Hemoglobin 14.2 g/dl (14.0-18.0); Imm Gran Abs Auto 0.02 X10*3/uL (0.00-0.03); Imm Gran Pct Auto 0.3 % (0.0-0.4); Lymphocytes Absolute Auto 0.8 X10*3/uL (1.2-4.9); Lymphocytes Percent Auto 12.2 % (20-40); Mean Corpuscular Hemoglobin 32.1 pg (27.0-33.0); Mean Corpuscular Volume 94.4 fL (80.0-98.0); Mean Platelet Volume 9.9 fL (9.4-12.4); Monocytes Absolute Auto 0.5 X10*3/uL (0.1-1.2); Monocytes Percent Auto 7.5 % (2-11); Neutrophils Absolute Auto 4.9 x10*3/uL (2.0-8.3); Neutrophils Percent Auto 77.6 % (45-73); Red Blood Count 4.43 X10*6/uL (4.60-5.80); Red Cell Distribution Width 16.7 % (11.0-16.0); White Blood Count 6.3 X10*3/uL (4.8-10.8)
[2023-01-11 14:57] LABS: Platelet Count 78 X10*3/uL (160-400)
[2023-01-11 15:49] LABS: Alanine Aminotransferase 11 U/L (0-40); Albumin Level 4.1 g/dL (3.5-5.0); Alkaline Phosphatase 107 U/L (39-117); Anion Gap 15 (12-20); Aspartate Amino Transferase 15 U/L (5-37); Bilirubin Total 0.9 mg/dL (0.0-1.0); Blood Urea Nitrogen 34 mg/dL (9-16); Carbon Dioxide 27 mmol/L (22-29); Chloride 107 mmol/L (96-108); Estimated Glomerular Filt Rate 37; Glucose Random 77 mg/dL (60-115); Potassium 4.6 mmol/L (3.3-5.1); Sodium 144 mmol/L (135-145); Total Protein 5.8 g/dL (6.5-8.0)
[2023-01-11 15:56] LABS: Erythrocyte Sedimentation Rate 2 MM/HR (0-15)
== END 2023-01-11 13:09 | disposition home or self-care (01) ==
LOC: HO.LAB 13:08
PROVIDERS: PCP Internal Medicine Medical Oncology; Visit Provider Internal Medicine Medical Oncology
DX: D69.6 Thrombocytopenia, unspecified (principal); C85.83 Other specified types of non-Hodgkin lymphoma, intra-abdominal lymph nodes
CPT/HCPCS: 36415; 80053; 85025; 85652

== ENCOUNTER 2023-04-11 15:25 | Outpatient (REF) | payer MEDICARE, OTHER, SELFPAY ==
[2023-04-11 15:40] LABS: MANUAL DIFF FLAG NO
[2023-04-11 16:06] LABS: Basophils Percent Auto 0.3 % (0-2); Eosinophils Absolute Auto 0.1 X10*3/uL (0.0-0.4); Eosinophils Percent Auto 1.4 % (0-4); Hematocrit 41.2 % (42.0-52.0); Hemoglobin 13.5 g/dl (14.0-18.0); Imm Gran Abs Auto 0.03 X10*3/uL (0.00-0.03); Imm Gran Pct Auto 0.4 % (0.0-0.4); Immature Retic Fraction 17.5 % (2.3-13.4); Lymphocytes Absolute Auto 0.6 X10*3/uL (1.2-4.9); Lymphocytes Percent Auto 8.2 % (20-40); Mean Corpuscular HGB Conc 32.8 g/dl (31.0-36.0); Mean Corpuscular Hemoglobin 30.7 pg (27.0-33.0); Mean Corpuscular Volume 93.6 fL (80.0-98.0); Mean Platelet Volume 9.4 fL (9.4-12.4); Monocytes Absolute Auto 0.5 X10*3/uL (0.1-1.2); Monocytes Percent Auto 7.1 % (2-11); Neutrophils Absolute Auto 5.9 x10*3/uL (2.0-8.3); Neutrophils Percent Auto 82.6 % (45-73); Red Cell Distribution Width 17.3 % (11.0-16.0); Retic HGB Equivalent 32.3 pg (30.0-35.0); Reticulocyte Percent 3.2 % (0.5-1.8); White Blood Count 7.2 X10*3/uL (4.8-10.8)
[2023-04-11 16:07] LABS: Platelet Count 93 X10*3/uL (160-400)
[2023-04-11 16:57] LABS: Alanine Aminotransferase 11 U/L (0-40); Albumin Level 4.2 g/dL (3.5-5.0); Alkaline Phosphatase 110 U/L (39-117); Anion Gap 13 (12-20); Aspartate Amino Transferase 16 U/L (5-37); Bilirubin Total 0.8 mg/dL (0.0-1.0); Blood Urea Nitrogen 27 mg/dL (9-16); Calcium 8.8 mg/dL (8.4-10.2); Carbon Dioxide 26 mmol/L (22-29); Chloride 108 mmol/L (96-108); Estimated Glomerular Filt Rate 39; Glucose Random 93 mg/dL (60-115); Lactate Dehydrogenase 236 U/L (118-273); Potassium 4.9 mmol/L (3.3-5.1); Sodium 142 mmol/L (135-145); Total Protein 6.3 g/dL (6.5-8.0)
[2023-04-11 17:11] LABS: Erythrocyte Sedimentation Rate 2 MM/HR (0-15)
== END 2023-04-11 15:26 | disposition home or self-care (01) ==
LOC: HO.LAB 15:25
PROVIDERS: PCP Internal Medicine Medical Oncology; Visit Provider Internal Medicine Medical Oncology
DX: C85.83 Other specified types of non-Hodgkin lymphoma, intra-abdominal lymph nodes (principal); I10 Essential (primary) hypertension; D69.6 Thrombocytopenia, unspecified; D61.818 Other pancytopenia
CPT/HCPCS: 36415; 80053; 83615; 85025; 85045; 85652

== ENCOUNTER 2023-07-13 14:17 | Outpatient (REF) | payer MEDICARE, OTHER, SELFPAY ==
[2023-07-13 14:31] LABS: MANUAL DIFF FLAG NO
[2023-07-13 14:59] LABS: Basophils Percent Auto 0.5 % (0-2); Eosinophils Absolute Auto 0.1 X10*3/uL (0.0-0.4); Eosinophils Percent Auto 2.1 % (0-4); Hematocrit 40.2 % (42.0-52.0); Hemoglobin 13.4 g/dl (14.0-18.0); Imm Gran Abs Auto 0.03 X10*3/uL (0.00-0.03); Imm Gran Pct Auto 0.5 % (0.0-0.4); Lymphocytes Absolute Auto 0.7 X10*3/uL (1.2-4.9); Lymphocytes Percent Auto 12.7 % (20-40); Mean Corpuscular HGB Conc 33.3 g/dl (31.0-36.0); Mean Corpuscular Hemoglobin 31.6 pg (27.0-33.0); Mean Corpuscular Volume 94.8 fL (80.0-98.0); Mean Platelet Volume 9.9 fL (9.4-12.4); Monocytes Absolute Auto 0.5 X10*3/uL (0.1-1.2); Monocytes Percent Auto 7.7 % (2-11); Neutrophils Absolute Auto 4.5 x10*3/uL (2.0-8.3); Neutrophils Percent Auto 76.5 % (45-73); Red Blood Count 4.24 X10*6/uL (4.60-5.80); Red Cell Distribution Width 16.9 % (11.0-16.0); White Blood Count 5.8 X10*3/uL (4.8-10.8)
[2023-07-13 15:00] LABS: Platelet Count 79 X10*3/uL (160-400)
[2023-07-13 15:58] LABS: Alanine Aminotransferase 11 U/L (0-40); Albumin Level 4.1 g/dL (3.5-5.0); Alkaline Phosphatase 108 U/L (39-117); Anion Gap 11 (12-20); Aspartate Amino Transferase 17 U/L (5-37); Bilirubin Total 0.7 mg/dL (0.0-1.0); Blood Urea Nitrogen 26 mg/dL (9-16); Calcium 8.7 mg/dL (8.4-10.2); Carbon Dioxide 29 mmol/L (22-29); Chloride 108 mmol/L (96-108); Estimated Glomerular Filt Rate 38; Glucose Random 117 mg/dL (60-115); Potassium 4.6 mmol/L (3.3-5.1); Sodium 143 mmol/L (135-145)
[2023-07-13 16:06] LABS: Prostate Specific Antigen 3.75 ng/mL (<0.05-4.0)
[2023-07-13 16:07] LABS: Lactate Dehydrogenase 204 U/L (118-273)
== END 2023-07-13 14:18 | disposition home or self-care (01) ==
LOC: HO.LAB 14:17
PROVIDERS: PCP Internal Medicine Medical Oncology; Visit Provider Internal Medicine Medical Oncology
DX: Z00.00 Encounter for general adult medical examination without abnormal findings (principal); I10 Essential (primary) hypertension; N40.1 Benign prostatic hyperplasia with lower urinary tract symptoms; E66.3 Overweight; Z12.5 Encounter for screening for malignant neoplasm of prostate
CPT/HCPCS: 36415; 80053; 83615; 84153; 85025

== ENCOUNTER 2023-09-16 13:47 | Outpatient (REF) | payer MEDICARE, OTHER, SELFPAY ==
[2023-09-16 14:00] LABS: MANUAL DIFF FLAG NO
[2023-09-16 14:31] LABS: Basophils Percent Auto 0.3 % (0-2); Eosinophils Absolute Auto 0.1 X10*3/uL (0.0-0.4); Eosinophils Percent Auto 1.6 % (0-4); Hematocrit 43.9 % (42.0-52.0); Hemoglobin 14.3 g/dl (14.0-18.0); Imm Gran Abs Auto 0.03 X10*3/uL (0.00-0.03); Imm Gran Pct Auto 0.5 % (0.0-0.4); Lymphocytes Absolute Auto 0.8 X10*3/uL (1.2-4.9); Lymphocytes Percent Auto 12.5 % (20-40); Mean Corpuscular HGB Conc 32.6 g/dl (31.0-36.0); Mean Corpuscular Hemoglobin 30.3 pg (27.0-33.0); Monocytes Absolute Auto 0.5 X10*3/uL (0.1-1.2); Monocytes Percent Auto 7.7 % (2-11); Neutrophils Percent Auto 77.4 % (45-73); Red Blood Count 4.72 X10*6/uL (4.60-5.80); White Blood Count 6.4 X10*3/uL (4.8-10.8)
[2023-09-16 14:33] LABS: Platelet Count 79 X10*3/uL (160-400)
[2023-09-16 15:17] LABS: Erythrocyte Sedimentation Rate 2 MM/HR (0-15)
[2023-09-16 15:30] LABS: Alanine Aminotransferase 13 U/L (0-40); Albumin Level 4.3 g/dL (3.5-5.0); Alkaline Phosphatase 110 U/L (39-117); Anion Gap 12 (12-20); Aspartate Amino Transferase 16 U/L (5-37); Bilirubin Total 0.8 mg/dL (0.0-1.0); Blood Urea Nitrogen 33 mg/dL (9-16); Calcium 8.9 mg/dL (8.4-10.2); Carbon Dioxide 27 mmol/L (22-29); Chloride 108 mmol/L (96-108); Estimated Glomerular Filt Rate 40; Glucose Random 96 mg/dL (60-115); Potassium 4.6 mmol/L (3.3-5.1); Sodium 142 mmol/L (135-145); Total Protein 6.2 g/dL (6.5-8.0); Uric Acid 6.7 mg/dL (3.4-7.0)
== END 2023-09-16 13:48 | disposition home or self-care (01) ==
LOC: HO.LAB 13:47
PROVIDERS: PCP Internal Medicine Medical Oncology; Visit Provider Internal Medicine Medical Oncology
DX: C85.83 Other specified types of non-Hodgkin lymphoma, intra-abdominal lymph nodes (principal); B02.29 Other postherpetic nervous system involvement; D69.6 Thrombocytopenia, unspecified; E66.3 Overweight
CPT/HCPCS: 36415; 80053; 84550; 85025; 85652

== ENCOUNTER 2024-02-01 13:30 | Outpatient (REF) | payer MEDICARE, OTHER, SELFPAY ==
[2024-02-01 13:49] LABS: MANUAL DIFF FLAG NO
[2024-02-01 14:18] LABS: Basophils Percent Auto 0.2 % (0-2); Eosinophils Absolute Auto 0.1 X10*3/uL (0.0-0.4); Eosinophils Percent Auto 2.2 % (0-4); Hematocrit 41.7 % (42.0-52.0); Hemoglobin 13.6 g/dl (14.0-18.0); Imm Gran Abs Auto 0.02 X10*3/uL (0.00-0.03); Imm Gran Pct Auto 0.4 % (0.0-0.4); Lymphocytes Absolute Auto 0.6 X10*3/uL (1.2-4.9); Lymphocytes Percent Auto 12.6 % (20-40); Mean Corpuscular HGB Conc 32.6 g/dl (31.0-36.0); Mean Corpuscular Hemoglobin 30.6 pg (27.0-33.0); Mean Corpuscular Volume 93.7 fL (80.0-98.0); Mean Platelet Volume 9.3 fL (9.4-12.4); Monocytes Absolute Auto 0.3 X10*3/uL (0.1-1.2); Monocytes Percent Auto 5.7 % (2-11); Neutrophils Percent Auto 78.9 % (45-73); Red Blood Count 4.45 X10*6/uL (4.60-5.80); Red Cell Distribution Width 15.9 % (11.0-16.0); White Blood Count 5.1 X10*3/uL (4.8-10.8)
[2024-02-01 14:19] LABS: Platelet Count 70 X10*3/uL (160-400)
[2024-02-01 14:53] LABS: Erythrocyte Sedimentation Rate 2 MM/HR (0-15)
[2024-02-01 15:12] LABS: Alanine Aminotransferase 13 U/L (0-40); Albumin Level 4.1 g/dL (3.5-5.0); Alkaline Phosphatase 107 U/L (39-117); Anion Gap 14 (12-20); Aspartate Amino Transferase 16 U/L (5-37); Bilirubin Total 0.6 mg/dL (0.0-1.0); Blood Urea Nitrogen 21 mg/dL (9-16); Carbon Dioxide 26 mmol/L (22-29); Chloride 110 mmol/L (96-108); Estimated Glomerular Filt Rate 38; Glucose Random 129 mg/dL (60-115); Lactate Dehydrogenase 194 U/L (118-273); Potassium 4.5 mmol/L (3.3-5.1); Sodium 145 mmol/L (135-145); Total Protein 5.9 g/dL (6.5-8.0); Uric Acid 6.6 mg/dL (3.4-7.0)
[2024-02-01 15:25] LABS: Prostate Specific Antigen 3.52 ng/mL (<0.05-4.0)
== END 2024-02-01 13:31 | disposition home or self-care (01) ==
LOC: HO.LAB 13:30
PROVIDERS: PCP Internal Medicine Medical Oncology; Visit Provider Internal Medicine Medical Oncology
DX: Z12.5 Encounter for screening for malignant neoplasm of prostate (principal); I10 Essential (primary) hypertension; M10.9 Gout, unspecified; N40.1 Benign prostatic hyperplasia with lower urinary tract symptoms; E66.3 Overweight
CPT/HCPCS: 36415; 80053; 83615; 84153; 84550; 85025; 85652

== ENCOUNTER 2024-04-12 13:55 | Outpatient (REF) | payer MEDICARE, OTHER, SELFPAY ==
[2024-04-12 14:17] LABS: MANUAL DIFF FLAG NO
[2024-04-12 15:08] LABS: Basophils Percent Auto 0.2 % (0-2); Eosinophils Absolute Auto 0.1 X10*3/uL (0.0-0.4); Hematocrit 41.1 % (42.0-52.0); Hemoglobin 13.6 g/dl (14.0-18.0); Imm Gran Abs Auto 0.01 X10*3/uL (0.00-0.03); Imm Gran Pct Auto 0.2 % (0.0-0.4); Lymphocytes Absolute Auto 0.7 X10*3/uL (1.2-4.9); Lymphocytes Percent Auto 13.5 % (20-40); Mean Corpuscular HGB Conc 33.1 g/dl (31.0-36.0); Mean Corpuscular Hemoglobin 30.8 pg (27.0-33.0); Mean Platelet Volume 10.6 fL (9.4-12.4); Monocytes Absolute Auto 0.4 X10*3/uL (0.1-1.2); Monocytes Percent Auto 7.3 % (2-11); Neutrophils Absolute Auto 3.9 x10*3/uL (2.0-8.3); Neutrophils Percent Auto 77.8 % (45-73); Red Blood Count 4.42 X10*6/uL (4.60-5.80); Red Cell Distribution Width 15.6 % (11.0-16.0)
[2024-04-12 15:09] LABS: Platelet Count 68 X10*3/uL (160-400)
[2024-04-12 15:23] LABS: Alanine Aminotransferase 16 U/L (0-40); Albumin Level 4.2 g/dL (3.5-5.0); Alkaline Phosphatase 106 U/L (39-117); Anion Gap 13 (12-20); Aspartate Amino Transferase 17 U/L (5-37); Bilirubin Total 0.8 mg/dL (0.0-1.0); Blood Urea Nitrogen 32 mg/dL (9-16); Calcium 9.5 mg/dL (8.4-10.2); Carbon Dioxide 27 mmol/L (22-29); Chloride 107 mmol/L (96-108); Cholesterol 88 mg/dL (<200); Estimated Glomerular Filt Rate 34; Glucose Fasting 101 mg/dL (60-99); HDL Cholesterol 37 mg/dL (>40); LDL Cholesterol Calculated 37 mg/dL (<100); Sodium 142 mmol/L (135-145); Total Protein 6.2 g/dL (6.5-8.0); Triglycerides 73 mg/dL (<150); Uric Acid 6.5 mg/dL (3.4-7.0)
== END 2024-04-12 13:56 | disposition home or self-care (01) ==
LOC: HO.LAB 13:55
PROVIDERS: PCP Internal Medicine Medical Oncology; Visit Provider Internal Medicine Medical Oncology
DX: C85.83 Other specified types of non-Hodgkin lymphoma, intra-abdominal lymph nodes (principal); I10 Essential (primary) hypertension; D69.6 Thrombocytopenia, unspecified; M10.9 Gout, unspecified
CPT/HCPCS: 36415; 80053; 80061; 84550; 85025

== ENCOUNTER 2024-07-17 11:48 | Outpatient (REF) | payer MEDICARE, OTHER, SELFPAY ==
[2024-07-17 12:15] LABS: MANUAL DIFF FLAG NO
[2024-07-17 12:56] LABS: Basophils Percent Auto 0.4 % (0-2); Eosinophils Absolute Auto 0.1 X10*3/uL (0.0-0.4); Eosinophils Percent Auto 0.9 % (0-4); Hematocrit 37.7 % (42.0-52.0); Hemoglobin 12.5 g/dl (14.0-18.0); Imm Gran Abs Auto 0.03 X10*3/uL (0.00-0.03); Imm Gran Pct Auto 0.6 % (0.0-0.4); Lymphocytes Absolute Auto 0.6 X10*3/uL (1.2-4.9); Lymphocytes Percent Auto 11.5 % (20-40); Mean Corpuscular HGB Conc 33.2 g/dl (31.0-36.0); Mean Corpuscular Hemoglobin 30.9 pg (27.0-33.0); Mean Corpuscular Volume 93.3 fL (80.0-98.0); Mean Platelet Volume 10.3 fL (9.4-12.4); Monocytes Absolute Auto 0.4 X10*3/uL (0.1-1.2); Monocytes Percent Auto 6.7 % (2-11); Neutrophils Absolute Auto 4.3 x10*3/uL (2.0-8.3); Neutrophils Percent Auto 79.9 % (45-73); Red Blood Count 4.04 X10*6/uL (4.60-5.80); Red Cell Distribution Width 16.1 % (11.0-16.0); White Blood Count 5.4 X10*3/uL (4.8-10.8)
[2024-07-17 12:58] LABS: Platelet Count 70 X10*3/uL (160-400)
[2024-07-17 13:33] LABS: Alanine Aminotransferase 13 U/L (0-40); Albumin Level 4.1 g/dL (3.5-5.0); Alkaline Phosphatase 110 U/L (39-117); Anion Gap 13 (12-20); Aspartate Amino Transferase 27 U/L (5-37); Blood Urea Nitrogen 28 mg/dL (9-16); Calcium 9.3 mg/dL (8.4-10.2); Carbon Dioxide 26 mmol/L (22-29); Chloride 106 mmol/L (96-108); Cholesterol 95 mg/dL (<200); Estimated Glomerular Filt Rate 44; Glucose Fasting 103 mg/dL (60-99); HDL Cholesterol 33 mg/dL (>40); LDL Cholesterol Calculated 41 mg/dL (<100); Lactate Dehydrogenase 221 U/L (118-273); Potassium 4.9 mmol/L (3.3-5.1); Sodium 140 mmol/L (135-145); Total Protein 6.1 g/dL (6.5-8.0); Triglycerides 105 mg/dL (<150)
[2024-07-17 13:48] LABS: Prostate Specific Antigen 3.99 ng/mL (<0.05-4.0)
== END 2024-07-17 11:49 | disposition home or self-care (01) ==
LOC: HO.LAB 11:48
PROVIDERS: PCP Internal Medicine Medical Oncology; Visit Provider Internal Medicine Medical Oncology
DX: Z00.00 Encounter for general adult medical examination without abnormal findings (principal); C85.83 Other specified types of non-Hodgkin lymphoma, intra-abdominal lymph nodes; I10 Essential (primary) hypertension; M10.9 Gout, unspecified; N40.1 Benign prostatic hyperplasia with lower urinary tract symptoms; E66.3 Overweight; Z12.5 Encounter for screening for malignant neoplasm of prostate
CPT/HCPCS: 36415; 80053; 80061; 83615; 84153; 84550; 85025

== ENCOUNTER 2024-11-26 13:48 | Outpatient (REF) | payer MEDICARE, OTHER, SELFPAY ==
[2024-11-26 14:01] LABS: MANUAL DIFF FLAG NO
[2024-11-26 14:32] LABS: Basophils Percent Auto 0.2 % (0-2); Eosinophils Absolute Auto 0.1 X10*3/uL (0.0-0.4); Eosinophils Percent Auto 1.7 % (0-4); Hematocrit 40.4 % (42.0-52.0); Hemoglobin 13.3 g/dl (14.0-18.0); Imm Gran Abs Auto 0.03 X10*3/uL (0.00-0.03); Imm Gran Pct Auto 0.6 % (0.0-0.4); Lymphocytes Absolute Auto 0.8 X10*3/uL (1.2-4.9); Lymphocytes Percent Auto 15.8 % (20-40); Mean Corpuscular HGB Conc 32.9 g/dl (31.0-36.0); Mean Corpuscular Hemoglobin 30.6 pg (27.0-33.0); Mean Corpuscular Volume 92.9 fL (80.0-98.0); Mean Platelet Volume 9.4 fL (9.4-12.4); Monocytes Absolute Auto 0.3 X10*3/uL (0.1-1.2); Monocytes Percent Auto 6.7 % (2-11); Neutrophils Absolute Auto 3.6 x10*3/uL (2.0-8.3); Red Blood Count 4.35 X10*6/uL (4.60-5.80); Red Cell Distribution Width 16.6 % (11.0-16.0); White Blood Count 4.8 X10*3/uL (4.8-10.8)
[2024-11-26 14:33] LABS: Platelet Count 66 X10*3/uL (160-400)
[2024-11-26 15:11] LABS: Alanine Aminotransferase 14 U/L (0-40); Albumin Level 4.1 g/dL (3.5-5.0); Alkaline Phosphatase 117 U/L (39-117); Anion Gap 11 (12-20); Aspartate Amino Transferase 21 U/L (5-37); Bilirubin Total 0.9 mg/dL (0.0-1.0); Blood Urea Nitrogen 34 mg/dL (9-16); Calcium 8.7 mg/dL (8.4-10.2); Carbon Dioxide 26 mmol/L (22-29); Chloride 110 mmol/L (96-108); Estimated Glomerular Filt Rate 35; Glucose Random 114 mg/dL (60-115); Lactate Dehydrogenase 215 U/L (118-273); Potassium 4.9 mmol/L (3.3-5.1); Sodium 142 mmol/L (135-145); Total Protein 5.9 g/dL (6.5-8.0); Uric Acid 6.5 mg/dL (3.4-7.0)
== END 2024-11-26 13:49 | disposition home or self-care (01) ==
LOC: HO.LAB 13:48
PROVIDERS: PCP Internal Medicine Medical Oncology; Visit Provider Internal Medicine Medical Oncology
DX: M10.9 Gout, unspecified (principal); E66.3 Overweight; D61.818 Other pancytopenia
CPT/HCPCS: 36415; 80053; 83615; 84550; 85025

== ENCOUNTER 2025-01-24 13:05 | Outpatient (REF) | payer MEDICARE, OTHER, SELFPAY ==
--- OUTSIDE RECORDS SUMMARY | 2025-01-24 13:11 | XMS_ITS ---
Author Organization Des Mercado III, MD Address [address] [place] [address] Care Team Providers Care Programming Engineer Name Role Phone Des Mercado Primary Care Provider [phone] Allergies Allergen (clinical drug ingredient) Drug/Non Drug Allergy documented on EMR Reaction Allergy Type Onset Date Status ciprofloxacin Ciprofloxacin HCl Pain in eyes Drug Allergy Active REASON FOR VISIT decubitus ulcer on Buttock x 6 days, Marginal zone lymphoma, Postherpetic neuralgia, Hypertension, Thrombocytopenia, Benign prostatic hypertrophy Medications Medication SIG (Take, Route, Frequency, Duration) Notes Start Date End Date Status Atenolol 25 mg TAKE 1 TABLET DAILY Active Finasteride 5 mg TAKE 1 TABLET DAILY Active Gabapentin 600 mg TAKE 1 TABLET TWICE A DAY DIRECTED Active Aspirin 81 81 MG 1 tablet Orally Once a day Active amLODIPine Besylate 5 mg TAKE 1 TABLET DAILY Active Pravastatin Sodium 20 mg TAKE 1 TABLET DAILY Active Terazosin HCl 5 mg TAKE 1 CAPSULE DAILY Active Allopurinol 100 mg TAKE 1 TABLET DAILY Active traZODone HCl 50 mg TAKE 1 TABLET AT BED TIME DIRECTED Active predniSONE 20 MG 1 tablet Orally Once a day 11/02/2023 Active Albuterol Sulfate HFA 108 (90 Base) MCG/ACT 1 puff as needed Inhalation every 4 hrs 11/02/2023 Active Albuterol Sulfate 108 (90 Base) MCG/ACT 1 puff as needed Inhalation every 4 hrs Active predniSONE 20 MG Oral Act gala Social History Tobacco Use: Social History Observation Description Date Details (start date - stop date) Former Smoker NA - NA Sex Assigned At : Social History Observation Description Sex Assigned At Male Tobacco Use/Smoking Question Answer Notes Patient is a former smoker How long has it been since you last smoked? 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 He has no left upper quadrant pain. His white blood cells and hematocrit are normal today. The platelet count is stable at 79,000. Observation will continue with our treatment. 10/03/2024 Gout (ICD-10 - M10.9) He has had no episodes of gout since his last visit. 10/03/2024 Former smoker (ICD-1 0 - Z87.891) He is highly motivated not to smoke and we have discussed at length strategies for maintaining abstinence in times of illness and distress. 10/03/2024 Essential hypertensi on (ICD-10 - I10) His blood pressure remained stable and no change in his regimen was made. 10/03/2024 Postherpetic neuralg ia (ICD-10 - B02.29) He takes the gabapentin occasionally now. He still says the pain is severe when it happens. 10/03/2024 Thrombocytopenia (ICD-10 - D69.6) His platelet count has decreased to 70,000. He has had no bleeding.No change in his therapy is necessary. 10/03/2024 Furuncle (ICD-10 - L02.92) This small area on the left buttock is feeling well and no treatment is necessary. Plan Of Treatment Medication Medication Name Sig Start Date Stop Date Notes Atenolol 25 mg TAKE 1 TABLET DAILY Finasteride 5 mg TAKE 1 TABLET DAILY Gabapentin 600 mg TAKE 1 TABLET TWICE A DAY DIRECTED Aspirin 81 81 MG 1 tablet Orally Once a day amLODIPine Besylate 5 mg TAKE 1 TABLET DAILY Pravastatin Sodium 20 mg TAKE 1 TABLET DAILY Terazosin HCl 5 mg TAKE 1 CAPSULE DAILY Allopurinol 100 mg TAKE 1 TABLET DAILY traZODone HCl 50 mg TAKE 1 TABLET AT BED TIME DIRECTED predniSONE 20 MG 1 tablet Orally Once a day 11/02/2023 Albuterol Sulfate HFA 108 (9 0 Base) MCG/ACT 1 puff as needed Inhalation every 4 hrs 11/02/2023 Albuterol Sulfate 108 (90 Base) MCG/ACT 1 puff as needed Inhalation every 4 hrs predniSONE 20 MG Oral Next Appt Details Follow Up: As Scheduled, [place] son: OV Provider Name:Des Mercado, 01/29/2025 02:15:00 PM, [address] [place] [address] [address] [place], [place], [id number], Provider Name:Des Mercado, 2025 02:30:00 PM, [address] [place] [address] [address], [place], [id number], Progress Notes * Osmany SOW WDOB:[birth year] (89 yo M)Acc No.[id number]:10/03/2024 Progress Notes Patient:?Osmany SOW W Provider:?Des Mercado MD :[id number]???Age:89 Y???Sex:Male Scottie e:10/03/2024 Address:[facility] [address], [facility], [id number] Subjective: * Chief Complaints: * ???decubitus ulcer on Buttoc k x 6 daysMarginal zone lymphomaPostherpetic neuralgiaHypertensionThrombocytopeniaBenign prostatic hypertrophy * HPI: ???COVID-19 Screening:?Questions?Have you had any new onset fever, chills, cough, congestion, sore throat, shortness of breath, muscle aches??No ???:?The patient, an 89-year-old male, has been experiencing an ulcer on his bottom for approximately 5 to 6 days. The ulcer is not bleeding and does not cause pain. The patient has also been experiencing persistent facial pain. The patient has been applying hydrogen peroxide to the ulcer. The patient has also been experiencing an itch on the right hand side of his back. The patient has a history of lymphoma, but there are no current signs of it returning. The patient's weight has been decreasing over the past few months, from 171 lbs in January to 164 lbs currently. Upon examination today there was a small healing area 1 cm in diameter that appeared to be resolving area of folliculitis.? No ulcer was seen.? It was no cellulitis or infection or drainage.? He will continue to keep the weight off of his buttocks by frequently changing positions and using pillows when he stays in his reclining chair for prolonged periods. * ROS:?General/Constitutional:?pain?only normal aches and pains.?Chills?denies.?Fatigue?admits.?Fever?denies.?ENT:?Decreased hearing?in both ears.?Respiratory:?Cough?denies.?Cardiovascular:?Chest pain with exertion?denies.?Dyspnea on exertion?denies.?Shortness of breath?denies.?Gastrointestinal:?Constipation?occasional.?Decreased appetite?denies.?Diarrhea?denies.?Heartburn?denies.?Nausea?denies.?Rectal bleeding?denies.?Vomiting?denies.?Hematology:?bruising?denies.?petechiae?denies.?Swollen glands?none have been noted.?Genitourinary:?Frequent urination?twice a night.?Musculoskeletal:?Muscle aches?denies.?Painful joints?denies.?Sciatica?denies.?Weakness?denies.?Skin:?Itching?denies.?Rash?denies.?Skin lesion(s)?1 cm red area of apparent healing folliculitis.?Neurologic:?Difficulty speaking?denies.?Dizziness?denies.?Headache?denies.?Low back pain?denies.?Psychiatric:?Depressed mood?denies.? * Medical History:? * Surgical History:?disc surge ry on L4 -L5 1992cholecystectomy 1988stent insertion for coronary artery disease appendectomy age 10 left inguinal herniorraphy upper lumbar spine surgery Februaryone marrow biopsy colonoscopy Dr. 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 03/15/2018complete tooth extraction 10/2018Slip disc operation No history * Hospitalization/Major Diagno stic Procedure:?No history * Family History:?Father: dece ased 58 yrs, uremic poising, alcoholism.?Mother: 75 yrs, lung cancer, diagnosed with Cancer.?Spouse: , cardiac disease.?2 brother(s) , 2 sister(s) - healthy. 3 daughter(s) - healthy. .? * Social History:?Tobacco Use:?Tobacco Use/Smoking?Patient is a?former smoker ?How long has it been since you last smoked??> 10 years ?Additional Findings: Tobacco Non-User?Ex-cigarette smoker ???He has been to Leti for 55 years. He has three daughters. 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 He was born in [place], [place]. * Medications:?TakingAllopurin ol 100 mg Tablet TAKE 1 TABLET DAILY Terazosin HCl 5 mg Capsule TAKE 1 CAPSULE DAILY Pravastatin Sodium 20 mg Tablet TAKE 1 TABLET DAILY Atenolol 25 mg Tablet TAKE 1 TABLET DAILY amLODIPine Besylate 5 mg Tablet TAKE 1 TABLET DAILY Aspirin 81 81 MG Tablet Delayed Release 1 tablet Orally Once a day Gabapentin 600 mg Tablet TAKE 1 TABLET TWICE A DAY DIRECTED Finasteride 5 mg Tablet TAKE 1 TABLET DAILY predniSONE 20 MG Tablet Oral Albuterol Sulfate HFA 108 (90 Base) MCG/ACT Aerosol Solution 1 puff as needed Inhalation every 4 hrs predniSONE 20 MG Tablet 1 tablet Orally Once a day traZODone HCl 50 mg Tablet TAKE 1 TABLET AT BEDTIME DIRECTED Taking Allopurinol 100 mg Tablet TAKE 1 TABLET DAILY Taking Terazosin HCl 5 mg Capsule TAKE 1 CAPSULE DAILY Taking Pravastatin Sodium 20 mg Tablet TAKE 1 TABLET DAILY Taking Atenolol 25 mg Tablet TAKE 1 TABLET DAILY Taking amLODIPine Besylate 5 mg Tablet TAKE 1 TABLET DAILY Taking Aspirin 81 81 MG Tablet Delayed Release 1 tablet Orally Once a day Taking Gabapentin 600 mg Tablet TAKE 1 TABLET TWICE A DAY DIRECTED Taking Finasteride 5 mg Tablet TAKE 1 TABLET DAILY Taking predniSONE 20 MG Tablet Oral Taking Albuterol Sulfate HFA 108 (90 Base) MCG/ACT Aerosol Solution 1 puff as needed Inhalation every 4 hrs Taking predniSONE 20 MG Tablet 1 tablet Orally Once a day Taking traZODone HCl 50 mg Tablet TAKE 1 TABLET AT BEDTIME DIRECTED DiscontinuedGabapentin 300 mg Capsule TAKE 3 CAPSULES TWICE A DAY Albuterol Sulfate 108 (90 Base) MCG/ACT Aerosol Powder Breath Activated 1 puff as needed Inhalation every 4 hrs Medication List reviewed and reconciled with the patientDiscontinued Gabapentin 300 mg Capsule TAKE 3 CAPSULES TWICE A DAY Discontinued Albuterol Sulfate 108 (90 Base) MCG/ACT Aerosol Powder Breath Activated 1 puff as needed Inhalation every 4 hrs Medication List reviewed and reconciled with the patient * Allergies:?Ciprofloxacin HCl : Pain in eyes - Allergyno[Allergies Verified] Objective: * Vitals:?Ht: 68, Wt:164, BMI: 24.93, BP:138/57, HR:64, Temp:97.0, Ht-cm: 172.72, Wt-k.39. * ???Past Orders: Lab:Prostate Specific Antige n * Collection Date 07/17/2024 02/01/2024 07/13/2023 Collection Time 12:14 PM 01:48 PM 02:30 PM Order Date 07/17/2024 02/01/2024 07/13/2023 Prostate Specific Antigen 3.99 (Ref Range: <0.05-4.0 ng/mL) 3.52 (Ref Range: <0.05-4.0 ng/mL) 3.75 (Ref Range: <0.05-4.0 ng/mL) * Lab:Complete Blood Count Aut o Diff * Collection Date 07/17/2024 04/12/2024 02/01/2024 Collection Time 12:14 PM 02:16 PM 01:48 PM Order Date 07/17/2024 04/12/2024 02/01/2024 White Blood Count 5.4 (Ref Range: 4.8-10.8 X10*3/uL) 5.0 (Ref Range: 4.8-10.8 X10*3/uL) 5.1 (Ref Range: 4.8-10.8 X10*3/uL) Red Blood Count 4.04?L (Ref Range: 4.60-5.80 X10*6/uL) 4.42?L (Ref Range: 4.60-5.80 X10*6/uL) 4.45?L (Ref Range: 4.60-5.80 X10*6/uL) Hemoglobin 12.5?L (Ref Range: 14.0-18.0 g/dl) 13.6?L (Ref Range: 14.0-18.0 g/dl) 13.6?L (Ref Range: 14.0-18.0 g/dl) Hematocrit 37.7?L (Ref Range: 42.0-52.0 %) 41.1?L (Ref Range: 42.0-52.0 %) 41.7?L (Ref Range: 42.0-52.0 %) Mean Corpuscular Volume 93.3 (Ref Range: 80.0-98.0 fL) 93.0 (Ref Range: 80.0-98.0 fL) 93.7 (Ref Range: 80.0-98.0 fL) Mean Corpuscular Hemoglobin 30.9 (Ref Range: 27.0-33.0 pg) 30.8 (Ref Range: 27.0-33.0 pg) 30.6 (Ref Range: 27.0-33.0 pg) Mean Corpuscular HGB Conc 33.2 (Ref Range: 31.0-36.0 g/dl) 33.1 (Ref Range: 31.0-36.0 g/dl) 32.6 (Ref Range: 31.0-36.0 g/dl) Red Cell Distribution Width 16.1?H (Ref Range: 11.0-16.0 %) 15.6 (Ref Range: 11.0-16.0 %) 15.9 (Ref Range: 11.0-16.0 %) Platelet Count 70?L (Ref Range: 160-400 X10*3/uL) 68?L (Ref Range: 160-400 X10*3/uL) 70?L (Ref Range: 160-400 X10*3/uL) Mean Platelet Volume 10.3 (Ref Range: 9.4-12.4 fL) 10.6 (Ref Range: 9.4-12.4 fL) 9.3?L (Ref Range: 9.4-12.4 fL) Neutrophils Percent Auto 79.9?H (Ref Range: 45-73 %) 77.8?H (Ref Range: 45-73 %) 78.9?H (Ref Range: 45-73 %) Imm Gran Pct Auto 0.6?H (Ref Range: 0.0-0.4 %) 0.2 (Ref Range: 0.0-0.4 %) 0.4 (Ref Range: 0.0-0.4 %) Lymphocytes Percent Auto 11.5?L (Ref Range: 20-40 %) 13.5?L (Ref Range: 20-40 %) 12.6?L (Ref Range: 20-40 %) Monocytes Percent Auto 6.7 (Ref Range: 2-11 %) 7.3 (Ref Range: 2-11 %) 5.7 (Ref Range: 2-11 %) Eosinophils Percent Auto 0.9 (Ref Range: 0-4 %) 1.0 (Ref Range: 0-4 %) 2.2 (Ref Range: 0-4 %) Basophils Percent Auto 0.4 (Ref Range: 0-2 %) 0.2 (Ref Range: 0-2 %) 0.2 (Ref Range: 0-2 %) NRBC Pct Auto 0.0 (Ref Range: 0.0-0.2 /100WBC) 0.0 (Ref Range: 0.0-0.2 /100WBC) 0.0 (Ref Range: 0.0-0.2 /100WBC) Neutrophils Absolute Auto 4.3 (Ref Range: 2.0-8.3 x10*3/uL) 3.9 (Ref Range: 2.0-8.3 x10*3/uL) 4.0 (Ref Range: 2.0-8.3 x10*3/uL) Imm Gran Abs Auto 0.03 (Ref Range: 0.00-0.03 X10*3/uL) 0.01 (Ref Range: 0.00-0.03 X10*3/uL) 0.02 (Ref Range: 0.00-0.03 X10*3/uL) Lymphocytes Absolute Auto 0.6?L (Ref Range: 1.2-4.9 X10*3/uL) 0.7?L (Ref Range: 1.2-4.9 X10*3/uL) 0.6?L (Ref Range: 1.2-4.9 X10*3/uL) Monocytes Absolute Auto 0.4 (Ref Range: 0.1-1.2 X10*3/uL) 0.4 (Ref Range: 0.1-1.2 X10*3/uL) 0.3 (Ref Range: 0.1-1.2 X10*3/uL) Eosinophils Absolute Auto 0.1 (Ref Range: 0.0-0.4 X10*3/uL) 0.1 (Ref Range: 0.0-0.4 X10*3/uL) 0.1 (Ref Range: 0.0-0.4 X10*3/uL) Basophils Absolute Auto 0.0 (Ref Range: 0.0-0.2 X10*3/uL) 0.0 (Ref Range: 0.0-0.2 X10*3/uL) 0.0 (Ref Range: 0.0-0.2 X10*3/uL) NRBC Abs Auto 0.000 (Ref Range: 0.0-0.012 X10*3/uL) 0.000 (Ref Range: 0.0-0.012 X10*3/uL) 0.000 (Ref Range: 0.0-0.012 X10*3/uL) * Lab:[facility] conti Fast * Collection Date 07/17/2024 04/12/2024 11/12/2022 Collection Time 12:14 PM 02:16 PM 02:10 PM Order Date 07/17/2024 04/12/2024 11/12/2022 Sodium 140 (Ref Range: 135-145 mmol/L) 142 (Ref Range: 135-145 mmol/L) 142 (Ref Range: 135-145 mmol/L) Bilirubin Total 1.0 (Ref Range: 0.0-1.0 mg/dL) 0.8 (Ref Range: 0.0-1.0 mg/dL) 1.1?H (Ref Range: 0.0-1.0 mg/dL) Aspartate Amino Transferase 27 (Ref Range: 5-37 U/L) 17 (Ref Range: 5-37 U/L) 18 (Ref Range: 5-37 U/L) Alanine Aminotransferase 13 (Ref Range: 0-40 U/L) 16 (Ref Range: 0-40 U/L) 11 (Ref Range: 0-40 U/L) Total Protein 6.1?L (Ref Range: 6.5-8.0 g/dL) 6.2?L (Ref Range: 6.5-8.0 g/dL) 5.9?L (Ref Range: 6.5-8.0 g/dL) Albumin Level 4.1 (Ref Range: 3.5-5.0 g/dL) 4.2 (Ref Range: 3.5-5.0 g/dL) 4.2 (Ref Range: 3.5-5.0 g/dL) Alkaline Phosphatase 110 (Ref Range: 39-117 U/L) 106 (Ref Range: 39-117 U/L) 121?H (Ref Range: 39-117 U/L) Potassium 4.9 (Ref Range: 3.3-5.1 mmol/L) 5.0 (Ref Range: 3.3-5.1 mmol/L) 4.8 (Ref Range: 3.3-5.1 mmol/L) Chloride 106 (Ref Range: 96-108 mmol/L) 107 (Ref Range: 96-108 mmol/L) 107 (Ref Range: 96-108 mmol/L) Carbon Dioxide 26 (Ref Range: 22-29 mmol/L) 27 (Ref Range: 22-29 mmol/L) 27 (Ref Range: 22-29 mmol/L) Anion Gap 13 (Ref Range: 12-20) 13 (Ref Range: 12-20) 13 (Ref Range: 12-20) Blood Urea Nitrogen 28?H (Ref Range: 9-16 mg/dL) 32?H (Ref Range: 9-16 mg/dL) 32?H (Ref Range: 9-16 mg/dL) Creatinine 1.50?H (Ref Range: 0.5-1.4 mg/dL) 1.88?H (Ref Range: 0.5-1.4 mg/dL) 1.59?H (Ref Range: 0.5-1.4 mg/dL) Estimated Glomerular Filt Rate 44 34 41 Glucose Fasting 103?H (Ref Range: 60-99 mg/dL) 101?H (Ref Range: 60-99 mg/dL) 76 (Ref Range: 60-99 mg/dL) Calcium 9.3 (Ref Range: 8.4-10.2 mg/dL) 9.5 (Ref Range: 8.4-10.2 mg/dL) 8.5 (Ref Range: 8.4-10.2 mg/dL) * Lab:Uric Acid * Collection Date 07/17/2024 04/12/2024 02/01/2024 Collection Time 12:14 PM 02:16 PM 01:48 PM Order Date 07/17/2024 04/12/2024 02/01/2024 Uric Acid 6.0 (Ref Range: 3.4-7.0 mg/dL) 6.5 (Ref Range: 3.4-7.0 mg/dL) 6.6 (Ref Range: 3.4-7.0 mg/dL) * Lab:Lactate Dehydrogenase * Collection Date 07/17/2024 02/01/2024 07/13/2023 Collection Time 12:14 PM 01:48 PM 02:30 PM Order Date 07/17/2024 02/01/2024 07/13/2023 Lactate Dehydrogenase 221 (Ref Range: 118-273 U/L) 194 (Ref Range: 118-273 U/L) 204 (Ref Range: 118-273 U/L) * Lab:Lipid Panel * Collection Date 07/17/2024 04/12/2024 11/12/2021 Collection Time 12:14 PM 02:16 PM 02:36 PM Order Date 07/17/2024 04/12/2024 11/12/2021 Triglycerides 105 (Ref Range: <150 mg/dL) 73 (Ref Range: <150 mg/dL) 69 (Ref Range: mg/dL) Cholesterol 95 (Ref Range: <200 mg/dL) 88 (Ref Range: <200 mg/dL) 95 (Ref Range: mg/dL) LDL Cholesterol Calculated 41 (Ref Range: <100 mg/dL) 37 (Ref Range: <100 mg/dL) 54 (Ref Range: mg/dl) HDL Cholesterol 33?L (Ref Range: >40 mg/dL) 37?L (Ref Range: >40 mg/dL) 28 (Ref Range: mg/dL) * Examination: ???General Examination: ?GENERAL APPEARANCE:?pleasant, well nourished, well developed, in no acute distress, calm and relaxed, elderly man.?HEAD:?atraumatic, normocephalic.?EYES:?eomi, perrla, anicteric, conjugate.?EARS:?normal.?NOSE:?septum intact.?ORAL CAVITY:?normal, unremarkable.?NECK/THYROID:?no jugular venous distention, no carotid bruit, thyroid normal.?LYMPH NODES:?no enlarged lymph nodes,spleen normal.?SKIN:?no suspicious lesions, anicteric, No petechiae or purpura, Old shingle scars right scalp and face.?HEART:?no clicks, gallops, murmurs, or rubs, regular rhythm, S1, S2 normal, no s3, or vascular bruits.?LUNGS:?clear to auscultation .?BREASTS:??no masses palpable bilaterally.?ABDOMEN:?bowel sounds normal, no ascites, no organomegaly, no mass.?RECTAL EXAM:?not examined.?MUSCULOSKELETAL:?extremities unremarkable, no clubbing, cyanosis or edema, Healing small? furuncle gluteal fold left buttock.?PERIPHERAL PULSES:?normal.?NEUROLOGIC:?alert and oriented, cranial nerves 2-12 grossly intact, deep tendon reflexes 2+ symmetrical, motor strength normal upper and lower extremities, sensory exam intact.?PSYCH:?alert, oriented.? 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 He has no left upper quadrant pain. His white blood cells and hematocrit are normal today. The platelet count is stable at 79,000. Observation will continue with our treatment.???2.?Gout - M10.9???Notes :He has had no episodes of gout since his last visit.???3.?Former smoker - Z87.891???Notes :He is highly motivated not to smoke and we have discussed at length strategies for maintaining abstinence in times of illness and distress.???4.?Essential hypertension - I10???Notes :His blood pressure remained stable and no change in his regimen was made.???5.?Postherpetic neuralgia - B02.29???Notes :He takes the gabapentin occasionally now. He still says the pain is severe when it happens.???6.?Thrombocytopenia - D69.6???Notes :His platelet count has decreased to 70,000. He has had no bleeding.No change in his therapy is necessary.???7.?Furuncle - L02.92???Notes :This small area on the left buttock is feeling well and no treatment is necessary.??? Plan: * Treatment: 2.?Others? Continue Allopurinol Tablet, 100 mg, TAKE 1 TABLET DAILY;?Continue Terazosin HCl Capsule, 5 mg, TAKE 1 CAPSULE DAILY;?Continue Pravastatin Sodium Tablet, 20 mg, TAKE 1 TABLET DAILY;?Continue Atenolol Tablet, 25 mg, TAKE 1 TABLET DAILY;?Continue amLODIPine Besylate Tablet, 5 mg, TAKE 1 TABLET DAILY;?Continue Aspirin 81 Tablet Delayed Release, 81 MG, 1 tablet, Orally, Once a day;?Continue Finasteride Tablet, 5 mg, TAKE 1 TABLET DAILY;?Continue traZODone HCl Tablet, 50 mg, TAKE 1 TABLET AT BEDTIME DIRECTED.?? * Procedure Codes:? * Preventive Medicine:? ??Counseling:?Smoking/Tobacco Use?Patient counseled on the dangers of tobacco use and urged to quit.?10/03/2024 * Follow Up:?As Scheduled ([place] son: OV) * Images: * Sign off status: Completed true * Provider:?Des Mercado MD Date:?09/06 Generated for Shahab miranda/Edmar/eTanaliliasmitting on:?01/24/2025 01:11 PM EDT History and Physical Notes * HPI (History of Present Illness) Category Sub-Category Detail Notes COVID-19 Screening Questions Have you had any new onset fever, chills, cough, congestion, sore throat, shortness of breath, muscle aches?: No Examination Category Sub-Category Detail Notes General Examination GENERAL APPEARANCE: pleasant , well nourished, well developed, in no acute distress, calm and relaxed, elderly man HEAD: atraumatic, normocep halic EYES: eomi, perrla, anicte ramesh, conjugate EARS: normal NOSE: septum intact NECK/THYROID: no jugular venous di stention, no carotid bruit, thyroid normal HEART: no clicks, gallops, murmurs, or rubs, regular rhythm, S1, S2 normal, no s3, or vascular bruits LUNGS: clear to auscultatio n ABDOMEN: bowel sounds normal, no ascites, no organomegaly, no mass NEUROLOGIC: alert and oriented, cranial nerves 2-12 grossly intact, deep tendon reflexes 2+ symmetrical, motor strength normal upper and lower extremities, sensory exam intact SKIN: no suspicious lesion s, anicteric, No petechiae or purpura, Old shingle scars right scalp and face PERIPHERAL PULSES: normal BREASTS: no masses palpable b ilaterally MUSCULOSKELETAL: extremities unremark able, no clubbing, cyanosis or edema, Healing small furuncle gluteal fold left buttock LYMPH NODES: no enlarged lymph no ivory,spleen normal RECTAL EXAM: not examined PSYCH: alert, oriented ORAL CAVITY: normal, unremarkable
--- OUTSIDE RECORDS SUMMARY | 2025-01-24 13:11 | XMS_ITS ---
Author Organization Des Mercado III, MD Address [address] [place] [address] Care Team Providers Care Police Worker Name Role Phone Des Mercado Primary Care Provider Allergies Allergen (clinical drug ingredient) Drug/Non Drug Allergy documented on EMR Reaction Allergy Type Onset Date Status ciprofloxacin Ciprofloxacin HCl Pain in eyes Drug Allergy Active REASON FOR VISIT Marginal zone lymphoma, Chronic thrombocytopenia, Hypertension, Benign prostatic hypertrophy Medications Medication SIG (Take, Route, Frequency, Duration) Notes Start Date End Date Status traZODone HCl 50 mg TAKE 1 TABLET AT BED TIME DIRECTED Active predniSONE 20 MG 1 tablet Orally Once a day 11/02/2023 Active Albuterol Sulfate HFA 108 (90 Base) MCG/ACT 1 puff as needed Inhalation every 4 hrs 11/02/2023 Active Albuterol Sulfate 108 (90 Base) MCG/ACT 1 puff as needed Inhalation every 4 hrs Active predniSONE 20 MG Oral Act gala amLODIPine Besylate 5 mg TAKE 1 TABLET DAILY Active Atenolol 25 mg TAKE 1 TABLET DAILY Active Pravastatin Sodium 20 mg TAKE 1 TABLET DAILY Active Finasteride 5 mg TAKE 1 TABLET DAILY Active Aspirin 81 81 MG 1 tablet Orally Once a day Active Terazosin HCl 5 mg TAKE 1 CAPSULE DAILY Active Allopurinol 100 mg TAKE 1 TABLET DAILY Active Gabapentin 300 mg TAKE 3 CAPSULES TWIC E A DAY Active Social History Tobacco Use: Social History Observation [...] Non-User Ex-cigaret te smoker Vital Signs Temperature 97.3 degrees Fahrenheit 11/27/19 25 Blood pressure systolic 125 mm Hg 11/27/19 25 Blood pressure diastolic 57 mm Hg 025 Heart Rate 59 /min 11/26/2024 Height 68 in 11/26/2024 Weight 164 lbs 11/26/2024 BMI 24.93 kg/m2 11/26/2024 Encounters Encounter Location Date Provider Diagnosis Des Mercado III, MD [address] [place] [address] [place] [id number] 11/26/2024 Des Mercado 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 There is no peripheral adenopathy or splenomegaly. The platelet count of 66,000. He has had no infections. Observation was continued. Treatment is not necessary at this time. 11/26/2024 Essential hypertensi on (ICD-10 - I10) His blood pressure remained stable and no change in his regimen was made. 11/26/2024 Thrombocytopenia (ICD-10 - D69.6) His platelet count has decreased to 66,000. He has had no bleeding.No change in his therapy is necessary. 11/26/2024 Former smoker (ICD-1 0 - Z87.891) He is highly motivated not to smoke and we have discussed at length strategies for maintaining abstinence in times of illness and distress. 11/26/2024 Gout (ICD-10 - M10.9) He has had no episodes of gout since his last visit. 11/26/2024 Postherpetic neuralg ia (ICD-10 - B02.29) He takes the gabapentin occasionally now. He still says the pain is severe when it happens. 11/26/2024 Benign prostatic hyperplasia with lower urinary tract symptoms (ICD-10 - N40.1) He arises from sleep once or twice a night to urinate. We have discussed lifestyle modification. Plan Of Treatment Medication Medication Name Sig Start Date Stop Date Notes traZODone HCl 50 mg TAKE 1 TABLET AT BED TIME DIRECTED predniSONE 20 MG 1 tablet Orally Once a day 11/02/2023 Albuterol Sulfate HFA 108 (9 0 Base) MCG/ACT 1 puff as needed Inhalation every 4 hrs 11/02/2023 Albuterol Sulfate 108 (90 Base) MCG/ACT 1 puff as needed Inhalation every 4 hrs predniSONE 20 MG Oral amLODIPine Besylate 5 mg TAKE 1 TABLET DAILY Atenolol 25 mg TAKE 1 TABLET DAILY Pravastatin Sodium 20 mg TAKE 1 TABLET DAILY Finasteride 5 mg TAKE 1 TABLET DAILY Aspirin 81 81 MG 1 tablet Orally Once a day Terazosin HCl 5 mg TAKE 1 CAPSULE DAILY Allopurinol 100 mg TAKE 1 TABLET DAILY Gabapentin 300 mg TAKE 3 CAPSULES TWICE A DAY Pending Test Test Name Order Date PROFILE, RANDOM (COMPREHENSIVE METABOLIC ) 11/26/2024 CBC w DIFF 11/26/2024 Next Appt Details Follow Up: 3 Months, Reason: ov Provider Name:Des Mercado, 01/29/2025 02:15:00 PM, [address] [place] [address] [place], [place], [id number], Provider Name:Des Mercado, 2025 02:30:00 PM, [address] [place] [address] [place], [place], [id number], Progress Notes * Osmany SOW WDOB:[birth year] (89 yo M)Acc No.[id number]:11/26/2024 Progress Notes Patient:?Osmany SOW W Provider:?Des Mercado MD :[id number]???Age:89 Y???Sex:Male Scottie e:11/26/2024 Address:[address], [facility] [id number] Subjective: * Chief Complaints: * ???Marginal zone lymphomaChr onic thrombocytopeniaHypertensionBenign prostatic hypertrophy * HPI: ???COVID-19 Screening:?He returns for management of several medical issues at the age of 89.? He is living at home with family support.? ?He says he feels generally well and has no pain.? He denies any angina or dyspnea palpitations, nausea, vomiting, diarrhea or bleeding.? He has no abdominal pain.? The spleen was not palpable on today's examination.? He admits to nocturia once a night.? He is sleeping well and has a good appetite.? No change in his therapy was necessary today. ?Questions?Have you had any new onset fever, chills, cough, congestion, sore throat, shortness of breath, muscle aches??No * ROS:?General/Constitutional:?pain?only normal aches and pains.?Chills?denies.?Fatigue?admits.?Fever?denies.?ENT:?Decreased hearing?mild.?Respiratory:?Cough?denies.?Cardiovascular:?Chest pain with exertion?denies.?Dyspnea on exertion?denies.?Shortness of breath?with exertion.?Gastrointestinal:?Constipation?occasional.?Decreased appetite?denies.?Diarrhea?denies.?Heartburn?denies.?Nausea?denies.?Rectal bleeding?denies.?Vomiting?denies.?Hematology:?bruising?denies.?petechiae?denies.?Swollen glands?none have been noted.?Genitourinary:?Frequent urination?once a night.?Musculoskeletal:?Muscle aches?denies.?Painful joints?denies.?Sciatica?denies.?Weakness?denies.?Skin:?Itching?denies.?Rash?denies.?Skin lesion(s)?denies.?Neurologic:?Difficulty speaking?denies.?Dizziness?denies.?Headache?denies.?Low back pain?denies.?Psychiatric:?Depressed mood?denies.? * Medical History:? 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 He was born in [place], [place]. * Medications:?TakingAllopurin ol 100 mg Tablet TAKE 1 TABLET DAILY Terazosin HCl 5 mg Capsule TAKE 1 CAPSULE DAILY Pravastatin Sodium 20 mg Tablet TAKE 1 TABLET DAILY Atenolol 25 mg Tablet TAKE 1 TABLET DAILY amLODIPine Besylate 5 mg Tablet TAKE 1 TABLET DAILY Aspirin 81 81 MG Tablet Delayed Release 1 tablet Orally Once a day Finasteride 5 mg Tablet TAKE 1 TABLET DAILY predniSONE 20 MG Tablet Oral Albuterol Sulfate 108 (90 Base) MCG/ACT Aerosol Powder Breath Activated 1 puff as needed Inhalation every 4 hrs Albuterol Sulfate HFA 108 (90 Base) MCG/ACT Aerosol Solution 1 puff as needed Inhalation every 4 hrs predniSONE 20 MG Tablet 1 tablet Orally Once a day traZODone HCl 50 mg Tablet TAKE 1 TABLET AT BEDTIME DIRECTED Gabapentin 300 mg Capsule TAKE 3 CAPSULES TWICE A DAY Medication List reviewed and reconciled with the patientTaking Allopurinol 100 mg Tablet TAKE 1 TABLET DAILY Taking Terazosin HCl 5 mg Capsule TAKE 1 CAPSULE DAILY Taking Pravastatin Sodium 20 mg Tablet TAKE 1 TABLET DAILY Taking Atenolol 25 mg Tablet TAKE 1 TABLET DAILY Taking amLODIPine Besylate 5 mg Tablet TAKE 1 TABLET DAILY Taking Aspirin 81 81 MG Tablet Delayed Release 1 tablet Orally Once a day Taking Finasteride 5 mg Tablet TAKE 1 TABLET DAILY Taking predniSONE 20 MG Tablet Oral Taking Albuterol Sulfate 108 (90 Base) MCG/ACT Aerosol Powder Breath Activated 1 puff as needed Inhalation every 4 hrs Taking Albuterol Sulfate HFA 108 (90 Base) MCG/ACT Aerosol Solution 1 puff as needed Inhalation every 4 hrs Taking predniSONE 20 MG Tablet 1 tablet Orally Once a day Taking traZODone HCl 50 mg Tablet TAKE 1 TABLET AT BEDTIME DIRECTED Taking Gabapentin 300 mg Capsule TAKE 3 CAPSULES TWICE A DAY Medication List reviewed and reconciled with the patient * Allergies:?Ciprofloxacin HCl : Pain in eyes - Allergyno[Allergies Verified] Objective: * Vitals:?Ht: 68, Wt:164, BMI: 24.93, BP:125/57, HR:59, Temp:97.3, Ht-cm: 172.72, Wt-k.39. * Examination: ???General Examination: ?GENERAL APPEARANCE:?pleasant, well nourished, well developed, in no acute distress, calm and relaxed, elderly man.?HEAD:?atraumatic, normocephalic.?EYES:?eomi, perrla, anicteric, conjugate.?EARS:?normal.?NOSE:?septum intact.?ORAL CAVITY:?normal, unremarkable.?NECK/THYROID:?no jugular venous distention, no carotid bruit, thyroid normal.?LYMPH NODES:?no enlarged lymph nodes,spleen normal.?SKIN:?no suspicious lesions, anicteric, Old scarring on his scalp and face from herpes zoster.?HEART:?no clicks, gallops, murmurs, or rubs, regular rhythm, S1, S2 normal, no s3, or vascular bruits.?LUNGS:?clear to auscultation .?BREASTS:??no masses palpable bilaterally.?ABDOMEN:?bowel sounds normal, no ascites, no organomegaly, no mass.?RECTAL EXAM:?not examined.?MUSCULOSKELETAL:?extremities unremarkable, no clubbing, cyanosis or edema.?PERIPHERAL PULSES:?normal.?NEUROLOGIC:?alert and oriented, cranial nerves 2-12 grossly intact, deep tendon reflexes 2+ symmetrical, motor strength normal upper and lower extremities, sensory exam intact.?PSYCH:?alert, oriented, thought process logical, goal directed, speech clear, cognitive function intact, good eye contact, cooperative with exam.? 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 There is no peripheral adenopathy or splenomegaly.? The platelet count of 66,000.? He has had no infections.? Observation was continued.? Treatment is not necessary at this time.???2.?Essential hypertension - I10???Notes :His blood pressure remained stable and no change in his regimen was made.???3.?Thrombocytopenia - D69.6???Notes :His platelet count has decreased to 66,000. He has had no bleeding.No change in his therapy is necessary.???4.?Former smoker - Z87.891???Notes :He is highly motivated not to smoke and we have discussed at length strategies for maintaining abstinence in times of illness and distress.???5.?Gout - M10.9???Notes :He has had no episodes of gout since his last visit.???6.?Postherpetic neuralgia - B02.29???Notes :He takes the gabapentin occasionally now. He still says the pain is severe when it happens.???7.?Benign prostatic hyperplasia with lower urinary tract symptoms - N40.1???Notes :He arises from sleep once or twice a night to urinate. We have discussed lifestyle modification.??? Plan: * Treatment: 2.?Others? Continue Allopurinol Tablet, [...] dangers of tobacco use and urged to quit.?11/26/2024 * Follow Up:?3 Months (Reason: ov) * Images: * Sign off status: Completed true * Provider:?Des Mercado MD Date:?11/04 Generated for Shahab miranda/Edmar/Kaliasmitting on:?01/24/2025 01:10 PM EDT History and Physical Notes * [...] intact SKIN: no suspicious lesion s, anicteric, Old scarring on his scalp and face from herpes zoster PERIPHERAL PULSES: normal BREASTS: no masses palpable b ilaterally MUSCULOSKELETAL: extremities unremark able, no clubbing, cyanosis or edema LYMPH NODES: no enlarged lymph no ivory,spleen normal RECTAL EXAM: not examined PSYCH: alert, oriented, tho ught process logical, goal directed, speech clear, cognitive function intact, good eye contact, cooperative with exam ORAL CAVITY: normal, unremarkable
--- OUTSIDE RECORDS SUMMARY | 2025-01-24 13:11 | XMS_ITS ---
Author Organization Des Mercado III, MD Address [address] [address] Care Team Providers Care Portal Developer Name Role Phone Des Mercado Primary Care Provider Allergies Allergen (clinical drug ingredient) Drug/Non Drug Allergy documented on EMR Reaction Allergy Type Onset Date Status ciprofloxacin Ciprofloxacin HCl Pain in eyes Drug Allergy Active REASON FOR VISIT Indolentt lymphoma, Hypertension, Thrombocytopenia, Gout, Postherpetic neuralgia Medications Medication SIG (Take, Route, Frequency, Duration) Notes Start Date End Date Status Albuterol Sulfate 108 (90 Base) MCG/ACT 1 puff as needed Inhalation every 4 hrs Active Gabapentin 300 mg TAKE 3 CAPSULES TWIC E A DAY Active Gabapentin 600 mg TAKE 1 TABLET TWICE A DAY DIRECTED Active predniSONE 20 MG Oral Act gala Finasteride 5 mg TAKE 1 TABLET DAILY Active Atenolol 25 mg TAKE 1 TABLET DAILY Active Pravastatin Sodium 20 mg TAKE 1 TABLET DAILY Active Aspirin 81 81 MG 1 tablet Orally Once a day Active amLODIPine Besylate 5 mg TAKE 1 TABLET DAILY Active Terazosin HCl 5 mg TAKE 1 CAPSULE DAILY Active traZODone HCl 50 mg TAKE 1 TABLET AT BED TIME DIRECTED Active predniSONE 20 MG 1 tablet Orally Once a day 11/02/2023 Active Allopurinol 100 mg TAKE 1 TABLET DAILY Active Albuterol Sulfate HFA 108 (90 Base) MCG/ACT 1 puff as needed Inhalation every 4 hrs 11/02/2023 Active Immunizations Vaccine Route Administration Date Status Comme nts Influenza Vaccine Afluria IM Intramuscular 07/23/2024 Admi nistered Social History Tobacco Use: Social History Observation [...] Non-User Ex-cigaret te smoker Vital Signs Temperature 98.1 degrees Fahrenheit 07/23/20 24 Blood pressure systolic 139 mm Hg 07/23/20 24 Blood pressure diastolic 81 mm Hg 024 Heart Rate 69 /min 07/23/2024 Height 68 in 07/23/2024 Weight 168 lbs 07/23/2024 BMI 25.54 kg/m2 07/23/2024 Encounters Encounter Location Date Provider Diagnosis Des Mercado III, MD [address] [place] [address] DR [place], [place] [id number] 07/23/2024 Des Mercado 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 He has no left upper quadrant pain. His white blood cells and hematocrit are normal today. The platelet count is stable at 79,000. Observation will continue with our treatment. 07/23/2024 Encounter for immunization (ICD-10 - Z23) He received influenza vaccine today. 07/23/2024 Gout (ICD-10 - M10.9) He has had no episodes of gout since his last visit. 07/23/2024 Overweight (BMI 25.0-29.9) (ICD-10 - E66.3) He is slightly overweight. I suggested he stabilize his weight at this level and maintain a healthy diet. 07/23/2024 Pancytopenia (ICD-10 - D61.818) There has been no change in his peripheral blood counts. He has had no significant episodes of bleeding or of infection. 07/23/2024 Former smoker (ICD-10 - Z87.891) He is highly motivated not to smoke and we have discussed at length strategies for maintaining abstinence in times of illness and distress. Plan Of Treatment Medication Medication Name Sig Start Date Stop Date Notes Albuterol Sulfate 108 (90 Base) MCG/ACT 1 puff as needed Inhalation every 4 hrs Gabapentin 300 mg TAKE 3 CAPSULES TWICE A DAY Gabapentin 600 mg TAKE 1 TABLET TWICE A DAY DIRECTED predniSONE 20 MG Oral Finasteride 5 mg TAKE 1 TABLET DAILY Atenolol 25 mg TAKE 1 TABLET DAILY Pravastatin Sodium 20 mg TAKE 1 TABLET DAILY Aspirin 81 81 MG 1 tablet Orally Once a day amLODIPine Besylate 5 mg TAKE 1 TABLET DAILY Terazosin HCl 5 mg TAKE 1 CAPSULE DAILY traZODone HCl 50 mg TAKE 1 TABLET AT BED TIME DIRECTED predniSONE 20 MG 1 tablet Orally Once a day 11/02/2023 Allopurinol 100 mg TAKE 1 TABLET DAILY Albuterol Sulfate HFA 108 (9 0 Base) MCG/ACT 1 puff as needed Inhalation every 4 hrs 11/02/2023 Pending Test Test Name Order Date PROFILE, RANDOM (COMPREHENSIVE METABOLIC ) 07/23/2024 LDH 07/23/2024 CBC WITH AUTO DIFF 07/23/2024 Uric Acid 07/23/2024 Next Appt Details Follow Up: 4 Months, November, Reason: OV, Routine check-up Provider Name:Des Mercado, 01/29/2025 02:15:00 PM, [address] [place] [address] [place], [place], [phone], Provider Name:Des Mercado, 2025 02:30:00 PM, [address] [place] [address] [place], [place], [phone], Progress Notes * Osmany SOW WDOB:[birth year] (89 yo M)Acc No.[id number]:07/23/2024 Progress Notes Patient:?TREVON Osmany W Provider:?Des Mercado MD :[id number]???Age:89 Y???Sex:Male Scottie e:07/23/2024 Address:[address], [id number] Subjective: * Chief Complaints: * ???Indolentt lymphomaHyperte nsionThrombocytopeniaGoutPostherpetic neuralgia * HPI: ???COVID-19 Screening:?Questions?Have you experienced fever, chills, cough, sore throat, shortness of breath, difficulty breathing, muscle aches, loss of taste or smell??No ?Have you been exposed to the virus within the last 10 days??No ?Have you travelled internationally in the last 10 days??No ?Have you been exposed to COVID-19 in the past??No ???:? The patient, an 89-year-old male, reported feeling generally well with no new pains or issues. He mentioned having difficulty with his back and walking, which he attributed to a past slip disc operation and spinal stenosis. He also reported experiencing a sensation of water running down from the top of his head when he eats, which the doctor suggested could be due to nerves in his skin being affected by a past virus. The patient denied taking any new medications. He also mentioned having a slight hearing impairment. Blood Sugar Level is Normal. * ROS:?General/Constitutional:?pain?Postherpetic neuralgia right scalp and face.?Chills?denies.?Fatigue?admits.?Fever?denies.?ENT:?Decreased hearing?mild.?Respiratory:?Cough?denies.?Cardiovascular:?Chest pain with exertion?denies.?Dyspnea on exertion?denies.?Shortness of breath?denies.?Gastrointestinal:?Constipation?occasional.?Decreased appetite?denies.?Diarrhea?denies.?Heartburn?denies.?Nausea?denies.?Rectal bleeding?denies.?Vomiting?denies.?Hematology:?bruising?denies.?petechiae?denies.?Swollen glands?none have been noted.?Genitourinary:?Frequent urination?twice a night.?Musculoskeletal:?Muscle aches?denies.?Painful joints?denies.?Sciatica?denies.?Weakness?denies.?Skin:?Itching?denies.?Rash?denies.?Skin lesion(s)?denies.?Neurologic:?Difficulty speaking?denies.?Dizziness?denies.?Headache?denies.?Low back pain?denies.?Psychiatric:?Depressed mood?denies.? * Medical History:? * Surgical History:?disc surge ry on L4 -L5 1992cholecystectomy 1989stent insertion for coronary artery disease appendectomy age 10 left inguinal herniorraphy upper lumbar spine surgery Februaryone marrow biopsy colonoscopy Dr. 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 He was born in [place], [place]. * Medications:?TakingAllopurin ol 100 mg Tablet TAKE [...] TAKE 1 TABLET TWICE A DAY DIRECTED Gabapentin 300 mg Capsule TAKE 3 CAPSULES TWICE A DAY Finasteride 5 mg Tablet TAKE 1 TABLET [...] Tablet TAKE 1 TABLET AT BEDTIME DIRECTED Medication List reviewed and reconciled with the [...] 1 TABLET TWICE A DAY DIRECTED Taking Gabapentin 300 mg Capsule TAKE 3 CAPSULES TWICE A DAY Taking Finasteride 5 mg Tablet TAKE 1 [...] Tablet TAKE 1 TABLET AT BEDTIME DIRECTED Medication List reviewed and reconciled with the patient * Allergies:?Ciprofloxacin HCl : Pain in eyes - Allergyno[Allergies Verified] Objective: * Vitals:?Ht: 68, Wt:168, BMI: 25.54, BP:139/81, HR:69, Temp:98.1, Ht-cm: 172.72, Wt-k.2. * ???Past Orders: Lab:[facility] * Collection Date 07/17/2024 04/12/2024 11/12/2022 Collection [...] >40 mg/dL) 28 (Ref Range: mg/dL) * Lab:Prostate [facility] * Collection Date [...] X10*3/uL) 0.000 (Ref Range: 0.0-0.012 X10*3/uL) * Examination: ???General Examination: ?GENERAL APPEARANCE:?pleasant, well nourished, well developed, in no acute distress, calm and relaxed, overweight, elderly man.?HEAD:?atraumatic, normocephalic.?EYES:?eomi, perrla, anicteric, conjugate.?EARS:?normal.?NOSE:?septum intact.?ORAL CAVITY:?normal, unremarkable.?NECK/THYROID:?no jugular venous distention, no carotid bruit, thyroid normal.?LYMPH NODES:?no enlarged lymph nodes,spleen normal.?SKIN:?no suspicious lesions, anicteric, Herpetic scars right face.?HEART:?no clicks, gallops, murmurs, or rubs, regular rhythm, S1, S2 normal, no s3, or vascular bruits.?LUNGS:?clear to auscultation .?BREASTS:??no masses palpable bilaterally.?ABDOMEN:?bowel sounds normal, no ascites, no organomegaly, no mass, overweight.?RECTAL EXAM:?not examined.?MUSCULOSKELETAL:?extremities unremarkable, no clubbing, cyanosis or edema.?PERIPHERAL PULSES:?normal.?NEUROLOGIC:?alert and oriented, cranial nerves 2-12 grossly intact, deep tendon reflexes 2+ symmetrical, motor strength normal upper and lower extremities, sensory exam intact.?PSYCH:?alert, oriented.? 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 He has no left upper quadrant pain. His white blood cells and hematocrit are normal today. The platelet count is stable at 79,000. Observation will continue with our treatment.???3.?Gout - M10.9???Notes :He has had no episodes of gout since his last visit.???4.?Overweight (BMI 25.0-29.9) - E66.3???Notes :He is slightly overweight.? I suggested he stabilize his weight at this level and maintain a healthy diet.???5.?Pancytopenia - D61.818???Notes :There has been no change in his peripheral blood counts.? He has had no significant episodes of bleeding or of infection.???6.?Former smoker - Z87.891???Notes :He is highly motivated not to smoke and we have discussed at length strategies for maintaining abstinence in times of illness and distress.??? Plan: * Treatment: 2.?Gout?LAB: PROFILE, RANDOM (COMPREHENSIVE METABOLIC) ?LAB: LDH ?LAB: CBC WITH AUTO DIFF ?LAB: Uric Acid 3.?Overweight (BMI 25.0-29.9 )?LAB: PROFILE, RANDOM (COMPREHENSIVE METABOLIC) ?LAB: LDH ?LAB: CBC WITH AUTO DIFF ?LAB: Uric Acid 4.?Pancytopenia?LAB: PROFILE, RANDOM (COMPREHENSIVE METABOLIC) ?LAB: LDH ?LAB: CBC WITH AUTO DIFF ?LAB: Uric Acid 5.?Others? Continue Allopurinol Tablet, 100 mg, TAKE 1 TABLET DAILY;?Continue Terazosin HCl Capsule, 5 mg, TAKE 1 CAPSULE DAILY;?Continue Pravastatin Sodium Tablet, 20 mg, TAKE 1 TABLET DAILY;?Continue Atenolol Tablet, 25 mg, TAKE 1 TABLET DAILY;?Continue amLODIPine Besylate Tablet, 5 mg, TAKE 1 TABLET DAILY;?Continue Aspirin 81 Tablet Delayed Release, 81 MG, 1 tablet, Orally, Once a day;?Continue Gabapentin Capsule, 300 mg, TAKE 3 CAPSULES TWICE A DAY;?Continue Finasteride Tablet, 5 mg, TAKE 1 TABLET DAILY;?Continue traZODone HCl Tablet, 50 mg, TAKE 1 TABLET AT BEDTIME DIRECTED.?? * Immunizations:? Influenza Vaccine Afluria : 0.5 mL (Dose No:1) (Route: Intramuscular) given by Keith Jean on Left Arm (Encounter for immunization) ???Immunization record has been reviewed and updated. * Procedure Codes:?93486 CCIIV 4 VAC NO PRSV 0.5 ML [id number] FLU VACC 4 MAGI 3 YRS PLUS IM * Preventive Medicine:? ??Counseling:?Care goal follow-up plan:?Counseling for abnormal BMI given?Yes ?Above Normal BMI Follow-up?Dietary management education, guidance, and counseling ?Smoking/Tobacco Use?Patient counseled on the dangers of tobacco use and urged to quit.?07/23/2024 * Follow Up:?4 , November ( Reason: OV, Routine check-up) * Images: * Sign off status: Completed true * Provider:?Des Mercado MD Date:?07/06 Generated for Aylai ng/Edmar/eTransmitting on:?01/24/2025 01:10 PM EDT History and Physical Notes * HPI (History of Present Illness) Category Sub-Category Detail Notes COVID-19 Screening Questions Have you had any new onset fever, chills, cough, congestion, sore throat, shortness of breath, muscle aches?: No Have you been exposed to the virus withi n the last 10 days?: No Have you travelled internationally in [facility] hospital last 10 days?: No Have you been exposed to COVID-19 in the past?: No Examination Category Sub-Category Detail Notes General Examination GENERAL APPEARANCE: pleasant , well nourished, well developed, in no acute distress, calm and relaxed, overweight, elderly man HEAD: atraumatic, normocep halic EYES: eomi, perrla, anicte ramesh, conjugate EARS: normal NOSE: septum intact NECK/THYROID: no jugular venous di stention, no carotid bruit, thyroid normal HEART: no clicks, gallops, murmurs, or rubs, regular rhythm, S1, S2 normal, no s3, or vascular bruits LUNGS: clear to auscultatio n ABDOMEN: bowel sounds normal, no ascites, no organomegaly, no mass, overweight NEUROLOGIC: alert and oriented, cranial nerves 2-12 grossly intact, deep tendon reflexes 2+ symmetrical, motor strength normal upper and lower extremities, sensory exam intact SKIN: no suspicious lesion s, anicteric, Herpetic scars right face PERIPHERAL PULSES: normal BREASTS: no masses palpable b ilaterally MUSCULOSKELETAL: extremities unremark able, no clubbing, cyanosis or edema LYMPH NODES: no enlarged lymph no ivory,spleen normal RECTAL EXAM: not examined PSYCH: alert, oriented ORAL CAVITY: normal, unremarkable
--- OUTSIDE RECORDS SUMMARY | 2025-01-24 13:11 | XMS_ITS | Patient Health Record ---
Author Organization Des Mercado III, MD Address [address] [place] [address] [place] [address] Care Team Providers Care Organizational Development Specialist Name Role Phone Des Mercado Primary Care Provider [phone] Allergies Allergen (clinical drug ingredient) Drug/Non Drug Allergy documented on EMR Reaction Allergy Type Onset Date Status ciprofloxacin Ciprofloxacin HCl Pain in eyes Drug Allergy Active Results Component Value Reference Range Notes URINE DIP STICK Reviewed date:07/17/2024 02:04:03 PM Interpretation:normal Performing Lab: Notes/Report: normal SG 1.015 1.005 - 1.025 pH 5.0 5.0 - 9.0 MANUEL neg Negative - NIT neg Negative - PRO trace Negative - Trace GLU neg Negative - KET neg Negative - UBG 0.2 0.1 - 1.8 KIET neg 0.2 - 1.3 BLD neg Negative - Menstrating N/A Complete Blood Count Auto Di ff Reviewed date:02/02/2024 05:26:38 AM Interpretation: Performing Lab:[facility], [address] [place] [address] Notes/Report: White Blood Count 5.1 4.8-10.8 X10*3/uL Red Blood Count 4.45 4.60-5.80 X10*6/uL Hemoglobin 13.6 14.0-18.0 g/dl Hematocrit 41.7 42.0-52.0 % Mean Corpuscular Volume 93.7 80.0-98.0 fL Mean Corpuscular Hemoglobin 30.6 27.0-33.0 pg Mean Corpuscular HGB Conc 32.6 31.0-36.0 g/dl Red Cell Distribution Width 15.9 11.0-16.0 % Platelet Count 70 160-400 X10*3/uL Mean Platelet Volume 9.3 9.4-12.4 fL Neutrophils Percent Auto 78.9 45-73 % Imm Gran Pct Auto 0.4 0.0-0.4 % Lymphocytes Percent Auto 12.6 20-40 % Monocytes Percent Auto 5.7 2-11 % Eosinophils Percent Auto 2.2 0-4 % Basophils Percent Auto 0.2 0-2 % NRBC Pct Auto 0.0 0.0-0.2 /100WBC Neutrophils Absolute Auto 4.0 2.0-8.3 x10*3/u L Imm Gran Abs Auto 0.02 0.00-0.03 X10*3/uL Lymphocytes Absolute Auto 0.6 1.2-4.9 X10*3/u L Monocytes Absolute Auto 0.3 0.1-1.2 X10*3/uL Eosinophils Absolute Auto 0.1 0.0-0.4 X10*3/u L Basophils Absolute Auto 0.0 0.0-0.2 X10*3/uL NRBC Abs Auto 0.000 0.0-0.012 X10*3/uL Erythrocyte Sedimentation Ra te Reviewed date:02/02/2024 05:26:38 AM Interpretation: Performing Lab:[address] [address] Notes/Report: Erythrocyte Sedimentation Rate 2 0-15 MM/HR Patients with polycythemia and many hemoglobin abnormalities may have depressed sed rates whereas patients with anemia may have elevated sed rates. Comprehensive Met. Panel Reviewed date:02/02/2024 05:26:38 AM Interpretation: Performing Lab:[address] [address] Notes/Report: Sodium 145 135-145 mmol/L Potassium 4.5 3.3-5.1 mmol/L Chloride 110 96-108 mmol/L Carbon Dioxide 26 22-29 mmol/L Anion Gap 14 12-20 Blood Urea Nitrogen 21 9-16 mg/dL Creatinine 1.72 0.5-1.4 mg/dL Estimated Glomerular Filt Rate 38 NOTE: For -[place] individuals, multiply the result by 1.210. Chronic Kidney Disease: Estimated GFR < 60 mL/min/1.73m2 Severe Kidney Disease: Estimated GFR < 15 mL/min/1.73m2 Glucose Random 129 60-115 mg/dL Calcium 9.0 8.4-10.2 mg/dL Bilirubin Total 0.6 0.0-1.0 mg/dL Aspartate Amino Transferase 16 5-37 U/L Alanine Aminotransferase 13 0-40 U/L Total Protein 5.9 6.5-8.0 g/dL Albumin Level 4.1 3.5-5.0 g/dL Alkaline Phosphatase 107 39-117 U/L Uric Acid Reviewed date:02/02/2024 05:26:38 AM Interpretation: Performing Lab:[facility], [address] [place] [phone] Notes/Report: Uric Acid 6.6 3.4-7.0 mg/dL Lactate Dehydrogenase Reviewed date:02/02/2024 05:26:38 AM Interpretation: Performing Lab:[facility], [address] [place] [phone] Notes/Report: Lactate Dehydrogenase 194 118-273 U/L Prostate Specific Antigen Reviewed date:02/02/2024 05:26:38 AM Interpretation: Performing Lab:[facility], [address] [place] [phone] Notes/Report: Prostate Specific Antigen 3.52 <0.05-4.0 ng/mL PSA methodology: Borges Alinity i Chemiluminescent Microparticle Immunoassay (CMIA) Complete Blood Count Auto Di ff Reviewed date:04/16/2024 05:37:29 AM Interpretation: Performing Lab:[address] [address] Notes/Report: White Blood Count 5.0 4.8-10.8 X10*3/uL Red Blood Count 4.42 4.60-5.80 X10*6/uL Hemoglobin 13.6 14.0-18.0 g/dl Hematocrit 41.1 42.0-52.0 % Mean Corpuscular Volume 93.0 80.0-98.0 fL Mean Corpuscular Hemoglobin 30.8 27.0-33.0 pg Mean Corpuscular HGB Conc 33.1 31.0-36.0 g/dl Red Cell Distribution Width 15.6 11.0-16.0 % Platelet Count 68 160-400 X10*3/uL Mean Platelet Volume 10.6 9.4-12.4 fL Neutrophils Percent Auto 77.8 45-73 % Imm Gran Pct Auto 0.2 0.0-0.4 % Lymphocytes Percent Auto 13.5 20-40 % Monocytes Percent Auto 7.3 2-11 % Eosinophils Percent Auto 1.0 0-4 % Basophils Percent Auto 0.2 0-2 % NRBC Pct Auto 0.0 0.0-0.2 /100WBC Neutrophils Absolute Auto 3.9 2.0-8.3 x10*3/u L Imm Gran Abs Auto 0.01 0.00-0.03 X10*3/uL Lymphocytes Absolute Auto 0.7 1.2-4.9 X10*3/u L Monocytes Absolute Auto 0.4 0.1-1.2 X10*3/uL Eosinophils Absolute Auto 0.1 0.0-0.4 X10*3/u L Basophils Absolute Auto 0.0 0.0-0.2 X10*3/uL NRBC Abs Auto 0.000 0.0-0.012 X10*3/uL Comprehensive [place]. Panel Fa st Reviewed date:04/16/2024 05:37:29 AM Interpretation: Performing Lab:[facility], [address] [place] [phone] Notes/Report: Sodium 142 135-145 mmol/L Potassium 5.0 3.3-5.1 mmol/L Chloride 107 96-108 mmol/L Carbon Dioxide 27 22-29 mmol/L Anion Gap 13 12-20 Blood Urea Nitrogen 32 9-16 mg/dL Creatinine 1.88 0.5-1.4 mg/dL Estimated Glomerular Filt Rate 34 NOTE: For -[place] individuals, multiply the result by 1.210. Chronic Kidney Disease: Estimated GFR < 60 mL/min/1.73m2 Severe Kidney Disease: Estimated GFR < 15 mL/min/1.73m2 Glucose Fasting 101 60-99 mg/dL A fasting glucose from 100-125 mg/dl is considered impaired (pre-diabetes). Calcium 9.5 8.4-10.2 mg/dL Bilirubin Total 0.8 0.0-1.0 mg/dL Aspartate Amino Transferase 17 5-37 U/L Alanine Aminotransferase 16 0-40 U/L Total Protein 6.2 6.5-8.0 g/dL Albumin Level 4.2 3.5-5.0 g/dL Alkaline Phosphatase 106 39-117 U/L Uric Acid Reviewed date:04/16/2024 05:37:29 AM Interpretation: Performing Lab:[facility], [address] [place] [phone] Notes/Report: Uric Acid 6.5 3.4-7.0 mg/dL Lipid Panel Reviewed date:04/16/2024 05:37:29 AM Interpretation: Performing Lab:[facility], [address] [place] [phone] Notes/Report: Triglycerides 73 <150 mg/dL Desirable Triglyceride: less than 150 mg/dL Borderline High Triglyceride 150-199 mg/dL High Triglyceride: 200-499 mg/dL Very High Triglyceride: greater than or equal to 5OO mg/dL Cholesterol 88 <200 mg/dL Desirable Cholesterol: less than 200 mg/dL Borderline High Cholesterol: 200-239 mg/dL High Cholesterol: greater than 239 mg/dL LDL Cholesterol Calculated 37 <100 mg/dL Desirable LDL: less than 100 mg/dL Near Optimal/Above Optimal LDL: 110-129 mg/dL Borderline High LDL: 130-159 mg/dL High LDL: 160-189 mg/dL Very High LDL: greater than or equal to 190 mg/dL HDL Cholesterol 37 >40 mg/dL Desirable HDL: greater than 40 mg/dL Note: This HDL assay may give artificially low results in patients with liver disease. Complete Blood Count Auto Di ff Reviewed date:07/17/2024 02:04:03 PM Interpretation: Performing Lab:[facility], [address] [place] [phone] Notes/Report: White Blood Count 5.4 4.8-10.8 X10*3/uL Red Blood Count 4.04 4.60-5.80 X10*6/uL Hemoglobin 12.5 14.0-18.0 g/dl Hematocrit 37.7 42.0-52.0 % Mean Corpuscular Volume 93.3 80.0-98.0 fL Mean Corpuscular Hemoglobin 30.9 27.0-33.0 pg Mean Corpuscular HGB Conc 33.2 31.0-36.0 g/dl Red Cell Distribution Width 16.1 11.0-16.0 % Platelet Count 70 160-400 X10*3/uL Mean Platelet Volume 10.3 9.4-12.4 fL Neutrophils Percent Auto 79.9 45-73 % Imm Gran Pct Auto 0.6 0.0-0.4 % Lymphocytes Percent Auto 11.5 20-40 % Monocytes Percent Auto 6.7 2-11 % Eosinophils Percent Auto 0.9 0-4 % Basophils Percent Auto 0.4 0-2 % NRBC Pct Auto 0.0 0.0-0.2 /100WBC Neutrophils Absolute Auto 4.3 2.0-8.3 x10*3/u L Imm Gran Abs Auto 0.03 0.00-0.03 X10*3/uL Lymphocytes Absolute Auto 0.6 1.2-4.9 X10*3/u L Monocytes Absolute Auto 0.4 0.1-1.2 X10*3/uL Eosinophils Absolute Auto 0.1 0.0-0.4 X10*3/u L Basophils Absolute Auto 0.0 0.0-0.2 X10*3/uL NRBC Abs Auto 0.000 0.0-0.012 X10*3/uL Comprehensive [place]. Panel Fa st Reviewed date:07/17/2024 02:04:03 PM Interpretation: Performing Lab:[facility], [address] [place] [phone] Notes/Report: Sodium 140 135-145 mmol/L Potassium 4.9 3.3-5.1 mmol/L Chloride 106 96-108 mmol/L Carbon Dioxide 26 22-29 mmol/L Anion Gap 13 12-20 Blood Urea Nitrogen 28 9-16 mg/dL Creatinine 1.50 0.5-1.4 mg/dL Estimated Glomerular Filt Rate 44 Chronic Kidney Disease: Estimated GFR < 60 mL/min/1.73m2 Severe Kidney Disease: Estimated GFR < 15 mL/min/1.73m2 Glucose Fasting 103 60-99 mg/dL A fasting glucose from 100-125 mg/dl is considered impaired (pre-diabetes). Calcium 9.3 8.4-10.2 mg/dL Bilirubin Total 1.0 0.0-1.0 mg/dL Aspartate Amino Transferase 27 5-37 U/L Alanine Aminotransferase 13 0-40 U/L Total Protein 6.1 6.5-8.0 g/dL Albumin Level 4.1 3.5-5.0 g/dL Alkaline Phosphatase 110 39-117 U/L Uric Acid Reviewed date:07/17/2024 02:04:03 PM Interpretation: Performing Lab:[facility], [address] [place] [phone] Notes/Report: Uric Acid 6.0 3.4-7.0 mg/dL Lactate Dehydrogenase Reviewed date:07/17/2024 02:04:03 PM Interpretation: Performing Lab:[facility], [address] [place] [phone] Notes/Report: Lactate Dehydrogenase 221 118-273 U/L Lipid Panel Reviewed date:07/17/2024 02:04:03 PM Interpretation: Performing Lab:[address] [phone] Notes/Report: Triglycerides 105 <150 mg/dL Desirable Triglyceride: less than 150 mg/dL Borderline High Triglyceride 150-199 mg/dL High Triglyceride: 200-499 mg/dL Very High Triglyceride: greater than or equal to 5OO mg/dL Cholesterol 95 <200 mg/dL Desirable Cholesterol: less than 200 mg/dL Borderline High Cholesterol: 200-239 mg/dL High Cholesterol: greater than 239 mg/dL LDL Cholesterol Calculated 41 <100 mg/dL Desirable LDL: less than 100 mg/dL Near Optimal/Above Optimal LDL: 110-129 mg/dL Borderline High LDL: 130-159 mg/dL High LDL: 160-189 mg/dL Very High LDL: greater than or equal to 190 mg/dL HDL Cholesterol 33 >40 mg/dL Desirable HDL: greater than 40 mg/dL Note: This HDL assay may give artificially low results in patients with liver disease. Prostate Specific Antigen Reviewed date:07/17/2024 02:04:03 PM Interpretation: Performing Lab:[address] [address] Notes/Report: Prostate Specific Antigen 3.99 <0.05-4.0 ng/mL PSA methodology: Borges Alinity i Chemiluminescent Microparticle Immunoassay (CMIA) Complete Blood Count Auto Di ff Reviewed date:11/26/2024 02:39:14 PM Interpretation: Performing Lab:[address] [address] Notes/Report: White Blood Count 4.8 4.8-10.8 X10*3/uL Red Blood Count 4.35 4.60-5.80 X10*6/uL Hemoglobin 13.3 14.0-18.0 g/dl Hematocrit 40.4 42.0-52.0 % Mean Corpuscular Volume 92.9 80.0-98.0 fL Mean Corpuscular Hemoglobin 30.6 27.0-33.0 pg Mean Corpuscular HGB Conc 32.9 31.0-36.0 g/dl Red Cell Distribution Width 16.6 11.0-16.0 % Platelet Count 66 160-400 X10*3/uL Mean Platelet Volume 9.4 9.4-12.4 fL Neutrophils Percent Auto 75.0 45-73 % Imm Gran Pct Auto 0.6 0.0-0.4 % Lymphocytes Percent Auto 15.8 20-40 % Monocytes Percent Auto 6.7 2-11 % Eosinophils Percent Auto 1.7 0-4 % Basophils Percent Auto 0.2 0-2 % NRBC Pct Auto 0.0 0.0-0.2 /100WBC Neutrophils Absolute Auto 3.6 2.0-8.3 x10*3/u L Imm Gran Abs Auto 0.03 0.00-0.03 X10*3/uL Lymphocytes Absolute Auto 0.8 1.2-4.9 X10*3/u L Monocytes Absolute Auto 0.3 0.1-1.2 X10*3/uL Eosinophils Absolute Auto 0.1 0.0-0.4 X10*3/u L Basophils Absolute Auto 0.0 0.0-0.2 X10*3/uL NRBC Abs Auto 0.000 0.0-0.012 X10*3/uL Comprehensive Met. Panel Reviewed date:11/26/2024 08:38:26 PM Interpretation: Performing Lab:[facility], [address] [place] [phone] Notes/Report: Sodium 142 135-145 mmol/L Potassium 4.9 3.3-5.1 mmol/L Chloride 110 96-108 mmol/L Carbon Dioxide 26 22-29 mmol/L Anion Gap 11 12-20 Blood Urea Nitrogen 34 9-16 mg/dL Creatinine 1.85 0.5-1.4 mg/dL Estimated Glomerular Filt Rate 35 Chronic Kidney Disease: Estimated GFR < 60 mL/min/1.73m2 Severe Kidney Disease: Estimated GFR < 15 mL/min/1.73m2 Glucose Random 114 60-115 mg/dL Calcium 8.7 8.4-10.2 mg/dL Bilirubin Total 0.9 0.0-1.0 mg/dL Aspartate Amino Transferase 21 5-37 U/L Alanine Aminotransferase 14 0-40 U/L Total Protein 5.9 6.5-8.0 g/dL Albumin Level 4.1 3.5-5.0 g/dL Alkaline Phosphatase 117 39-117 U/L Uric Acid Reviewed date:11/26/2024 08:38:26 PM Interpretation: Performing Lab:[address] [phone] Notes/Report: Uric Acid 6.5 3.4-7.0 mg/dL Lactate Dehydrogenase Reviewed date:11/26/2024 08:38:26 PM Interpretation: Performing Lab:[address] [phone] Notes/Report: Lactate Dehydrogenase 215 118-273 U/L Reason For Referral No Information Medications Medication SIG (Take, Route, Frequency, Duration) Notes Start Date End Date Status Finasteride 5 mg TAKE 1 TABLET DAILY Active predniSONE 20 MG Oral Act gala Aspirin 81 81 MG 1 tablet Orally [...] 1 TABLET AT BED TIME DIRECTED Active Gabapentin 300 mg TAKE 3 CAPSULES TWIC E A DAY Active predniSONE 20 MG 1 tablet Orally Once a day 11/02/2023 Active Albuterol Sulfate HFA 108 (90 Base) MCG/ACT 1 puff as needed Inhalation every 4 hrs 11/02/2023 Active Albuterol Sulfate 108 (90 Base) MCG/ACT 1 puff as needed Inhalation every 4 hrs Active Immunizations Vaccine Route Administration Date Status Comme nts Influenza IM Intramuscular 06/27/2015 Administered Influenza IM Intramuscular 07/19/2016 Administered Influenza IM Intramuscular 06/02/2017 Administered Influenza no Preserv 3 and > IM Intramuscular 06/16/2018 Administered Influenza, quad IM Intramuscular 06/16/2021 Administered Influenza, quad Unknown 05/21/2020 Administered Influenza High Dose Quadrivalent Unknown 05/28/2022 Administered COVID PFIZER Unknown 11/10/2020 Administered COVID Pfizer Bivalent Unknown 05/28/2022 Administered COVID PFIZER Unknown 10/20/2020 Administered COVID PFIZER Unknown 07/03/2021 Administered COVID-19 Moderna SPIKEVAX Unknown 06/23/2023 Administer ed Influenza, quad Unknown 06/23/2023 Administered Influenza Vaccine Afluria IM Intramuscular 07/23/2024 Admi nistered Decline: Influenza Unknown 05/28/2014 Refused Social History Tobacco Use: Social History Observation Description Date Details (start date - stop date) Former Smoker NA - NA Sex Assigned At : Social History Observation Description Sex Assigned At Male Tobacco Use/Smoking Question Answer Notes Patient is a former smoker How long has it been since you last smoked? > 10 years Additional Findings: Tobacco Non-User Ex-cigaret te smoker Alcohol Screen Question Answer Notes Did you have a drink containing alcohol in the p ast year? No Points 0 Interpretation Negative Problems Problem Type SNOMED Code ICD Code Onset Dates Problem Status W/U Status Risk Notes Problem 2520266 Former smoker (Z87.891) Active confirmed He is highly motivated not to smoke and we have discussed at length strategies for maintaining abstinence in times of illness and distress. Problem 539789864 Overweight (BMI 25.0-29.9) (E66.3) Active confirmed He is sli ghtly overweight. I suggested he stabilize his weight at this level and maintain a healthy diet. Problem 323743330 Tubular adenoma (D36.9) Active confirmed I have recommended a colonoscopy every 5 years because of this despite his age. Problem 417098889 Pancytopenia (D61.818) Active confirmed There has been no change in his peripheral blood counts. He has had no significant episodes of bleeding or of infection. Problem 429311163 Thrombocytopenia (D69.6) Active confirmed His platelet count has decreased to 66,000. He has had no bleeding.No change in his therapy is necessary. Problem 97722556 Gout (M10.9) Active confirmed He has had no episodes of gout since his last visit. Problem 50269846 Essential hypertension (I10) Active confirmed His blood pressure remained stable and no change in his regimen was made. 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 There is no peripheral adenopathy or splenomegaly. The platelet count of 66,000. He has had no infections. Observation was continued. Treatment is not necessary at this time. Problem 6068651 Postherpetic neuralgia (B02.29) Active confirmed He takes the gabapentin occasionally now. He still says the pain is severe when it happens. Problem 541971904 Benign prostatic hyperplasia with lower urinary tract symptoms (N40.1) Active confirmed He arises from sleep once or twice a night to urinate. We have discussed lifestyle modification. Problem 34256686 Age-related cataract of both eyes, unspecified age-related cataract type (H25.9) Active confirmed This patient is medically cleared for cataract extraction July 03, 2020. No contraindication of surgery was found. Vital Signs Heart Rate 59 /min 11/26/2024 Temperature 97.3 degrees Fahrenheit 11/26/2024 Blood pressure diastolic 57 mm Hg 11/26/2024 Height 68 in 11/26/2024 Blood pressure systolic 125 mm Hg 11/26/2024 Weight 164 lbs 11/26/2024 BMI 24.93 kg/m2 11/26/2024 Encounters Encounter Location Date Provider Diagnosis Des Mercado III, MD [address] [place] [address] [place] [phone] 02/03/2024 Des Mercado Marginal zone lympho ma of intra-abdominal lymph nodes C85.83 ; Essential hypertension I10 ; Thrombocytopenia D69.6 and Gout M10.9 Des Mercado III, MD [address] [place] [address] [place] [address] 04/16/2024 Des Mercado Marginal zone lympho ma of intra-abdominal lymph nodes C85.83 ; Former smoker Z87.891 ; Essential hypertension I10 ; Postherpetic neuralgia B02.29 ; Gout M10.9 ; Benign prostatic hyperplasia with lower urinary tract symptoms N40.1 ; Thrombocytopenia D69.6 and Overweight (BMI 25.0-29.9) E66.3 Des Mercado III, MD [address] [place] [address] [place] [address] 07/23/2024 Des Mercado Marginal zone lympho ma of intra-abdominal lymph nodes C85.83 ; Encounter for immunization Z23 ; Gout M10.9 ; Overweight (BMI 25.0-29.9) E66.3 ; Pancytopenia D61.818 and Former smoker Z87.891 Des Mercado III, MD [address] [place] [address] [address] [place] [address] 10/03/2024 Des Mercado Marginal zone lympho ma of intra-abdominal lymph nodes C85.83 ; Gout M10.9 ; Former smoker Z87.891 ; Essential hypertension I10 ; Postherpetic neuralgia B02.29 ; Thrombocytopenia D69.6 and Furuncle L02.92 Des Mercado III, MD [address] [place] [address] [place] [address] 11/26/2024 Des Mercado Marginal zone lympho ma of intra-abdominal lymph nodes C85.83 ; Essential hypertension I10 ; Thrombocytopenia D69.6 ; Former smoker Z87.891 ; Gout M10.9 ; Postherpetic neuralgia B02.29 and Benign prostatic hyperplasia with lower urinary tract symptoms N40.1 Assessments Encounter Date Diagnosis (ICD Code) Assessment Notes Treat ment Notes Treatment Clinical Notes 02/03/2024 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 He has no left upper quadrant pain. His white blood cells and hematocrit are normal today. The platelet count is stable at 79,000. Observation will continue with our treatment. 04/16/2024 Former smoker (ICD-1 0 - Z87.891) He is highly motivated not to smoke and we have discussed at length strategies for maintaining abstinence in times of illness and distress. 04/16/2024 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 He has no left upper quadrant pain. His white blood cells and hematocrit are normal today. The platelet count is stable at 79,000. Observation will continue with our treatment. 07/23/2024 Encounter for immunization (ICD-10 - Z23) He received influenza vaccine today. 07/23/2024 Marginal zone lympho ma of intra-abdominal lymph [...] of gout since his last visit. 10/03/2024 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 He has no left upper quadrant pain. His white blood cells and hematocrit are normal today. The platelet count is stable at 79,000. Observation will continue with our treatment. 11/26/2024 Essential hypertensi on (ICD-10 - I10) His blood pressure remained stable and no change in his regimen was made. 11/26/2024 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 There is no peripheral adenopathy or splenomegaly. The platelet count of 66,000. He has had no infections. Observation was continued. Treatment is not necessary at this time. 04/16/2024 Essential hypertensi on (ICD-10 - I10) He was given an appointment to come to the office to measure his vital signs. 07/23/2024 Gout (ICD-10 - M10.9) He has had no episodes of gout since his last visit. 10/03/2024 Former smoker (ICD-1 0 - Z87.891) He is highly motivated not to smoke and we have discussed at length strategies for maintaining abstinence in times of illness and distress. 11/26/2024 Thrombocytopenia (ICD-10 - D69.6) His platelet count has decreased to 66,000. He has had no bleeding.No change in his therapy is necessary. 02/03/2024 Essential hypertensi on (ICD-10 - I10) 04/16/2024 Postherpetic neuralg ia (ICD-10 - B02.29) He takes the gabapentin occasionally now. He still says the pain is severe when it happens. 07/23/2024 Overweight (BMI 25.0-29.9) (ICD-10 - E66.3) He is slightly overweight. I suggested he stabilize his weight at this level and maintain a healthy diet. 10/03/2024 Essential hypertensi on (ICD-10 - I10) His blood pressure remained stable and no change in his regimen was made. 11/26/2024 Former smoker (ICD-1 0 - Z87.891) He is highly motivated not to smoke and we have discussed at length strategies for maintaining abstinence in times of illness and distress. 02/03/2024 Thrombocytopenia (ICD-10 - D69.6) 04/16/2024 Gout (ICD-10 - M10.9) He has had no episodes of gouty arthritis. 07/23/2024 Pancytopenia (ICD-10 - D61.818) There has been no change in his peripheral blood counts. He has had no significant episodes of bleeding or of infection. 10/03/2024 Postherpetic neuralg ia (ICD-10 - B02.29) He takes the gabapentin occasionally now. He still says the pain is severe when it happens. 11/26/2024 Gout (ICD-10 - M10.9) He has had no episodes of gout since his last visit. 02/03/2024 Gout (ICD-10 - M10.9) 04/16/2024 Benign prostatic hyperplasia with lower urinary tract symptoms (ICD-10 - N40.1) He arises from sleep once or twice a night to urinate. We have discussed lifestyle modification. 07/23/2024 Former smoker (ICD-1 0 - Z87.891) He is highly motivated not to smoke and we have discussed at length strategies for maintaining abstinence in times of illness and distress. 10/03/2024 Thrombocytopenia (ICD-10 - D69.6) His platelet count has decreased to 70,000. He has had no bleeding.No change in his therapy is necessary. 11/26/2024 Postherpetic neuralg ia (ICD-10 - B02.29) He takes the gabapentin occasionally now. He still says the pain is severe when it happens. 04/16/2024 Thrombocytopenia (ICD-10 - D69.6) His platelet count has increased to 79,000. He has had no bleeding. 10/03/2024 Furuncle (ICD-10 - L02.92) This small area on the left buttock is feeling well and no treatment is necessary. 11/26/2024 Benign prostatic hyperplasia with lower urinary tract symptoms (ICD-10 - N40.1) He arises from sleep once or twice a night to urinate. We have discussed lifestyle modification. 04/16/2024 Overweight (BMI 25.0-29.9) (ICD-10 - E66.3) He remains slightly overweight but with a good appetite. Plan Of Treatment Pending Test Test Name Order Date URINE DIP STICK 03/25/2020 PROFILE, FASTING (COMPREHENSIVE METABOLI C) 08/27/2020 PROFILE, FASTING (COMPREHENSIVE METABOLI C) 02/26/2021 PROFILE, FASTING (COMPREHENSIVE METABOLI C) 04/16/2024 PROFILE, FASTING (COMPREHENSIVE METABOLI C) 06/16/2021 PROFILE, FASTING (COMPREHENSIVE METABOLI C) 11/25/2020 PROFILE, FASTING (COMPREHENSIVE METABOLI C) 05/28/2021 PROFILE, FASTING (COMPREHENSIVE METABOLI C) 09/15/2021 PROFILE, FASTING (COMPREHENSIVE METABOLI C) 06/27/2019 PROFILE, RANDOM (COMPREHENSIVE METABOLIC ) 11/17/2023 PROFILE, RANDOM (COMPREHENSIVE METABOLIC ) 12/15/2018 PROFILE, RANDOM (COMPREHENSIVE METABOLIC ) 11/26/2024 PROFILE, RANDOM (COMPREHENSIVE METABOLIC ) 01/17/2023 PROFILE, RANDOM (COMPREHENSIVE METABOLIC ) 09/24/2019 PROFILE, RANDOM (COMPREHENSIVE METABOLIC ) 10/16/2018 PROFILE, RANDOM (COMPREHENSIVE METABOLIC ) 07/23/2024 PROFILE, RANDOM (COMPREHENSIVE METABOLIC ) 07/18/2023 PROFILE, RANDOM (COMPREHENSIVE METABOLIC ) 04/27/2018 PROFILE, RANDOM (COMPREHENSIVE METABOLIC ) 07/14/2018 PROFILE, RANDOM (COMPREHENSIVE METABOLIC ) 04/30/2019 PROFILE, RANDOM (COMPREHENSIVE METABOLIC ) 04/11/2023 PROFILE, RANDOM (COMPREHENSIVE METABOLIC ) 11/15/2022 PROFILE, RANDOM (COMPREHENSIVE METABOLIC ) 03/25/2020 PROFILE, RANDOM (COMPREHENSIVE METABOLIC ) 02/28/2019 URIC ACID 02/28/2019 URIC ACID 08/27/2020 URIC ACID 02/26/2021 URIC ACID 10/16/2018 URIC ACID 09/15/2021 LIPID PANEL 11/25/2020 LIPID PANEL 09/24/2019 LIPID PANEL 08/27/2020 LIPID PANEL 02/26/2021 LIPID PANEL 06/27/2019 LIPID PANEL 09/15/2021 LDH 03/25/2020 LDH 12/25/2019 LDH 02/28/2019 LDH 11/17/2023 LDH 12/15/2018 LDH 04/16/2024 LDH 06/16/2021 LDH 05/28/2021 LDH 07/23/2024 LDH 11/25/2020 LDH 04/27/2018 LDH 09/24/2019 LDH 08/27/2020 LDH 02/26/2021 LDH 10/16/2018 LDH 06/27/2019 LDH 07/14/2018 LDH 04/30/2019 LDH 04/11/2023 LDH 01/17/2023 LDH 09/15/2021 PSA, TOTAL 04/11/2023 PSA, TOTAL 03/25/2020 PSA, TOTAL 11/17/2023 PSA, TOTAL 04/16/2024 PSA, TOTAL 06/16/2021 PSA, TOTAL 05/28/2021 PSA, TOTAL+FREE 09/15/2021 CBC w DIFF 07/14/2018 CBC w DIFF 04/30/2019 CBC w DIFF 01/17/2023 CBC w DIFF 04/11/2023 CBC w DIFF 12/25/2019 CBC w DIFF 11/26/2024 CBC w DIFF 09/15/2021 CBC w DIFF 03/25/2020 CBC w DIFF 02/28/2019 CBC w DIFF 12/15/2018 CBC w DIFF 06/16/2021 CBC w DIFF 11/25/2020 CBC w DIFF 05/28/2021 CBC w DIFF 04/27/2018 CBC w DIFF 11/15/2022 CBC w DIFF 09/24/2019 CBC w DIFF 08/27/2020 CBC w DIFF 02/26/2021 CBC w DIFF 10/16/2018 CBC w DIFF 06/27/2019 SED RATE (ESR) 11/25/2020 SED RATE (ESR) 06/16/2021 SED RATE (ESR) 11/15/2022 SED RATE (ESR) 08/27/2020 SED RATE (ESR) 02/26/2021 SED RATE (ESR) 06/27/2019 SED RATE (ESR) 07/14/2018 SED RATE (ESR) 04/30/2019 SED RATE (ESR) 01/17/2023 SED RATE (ESR) 12/25/2019 SED RATE (ESR) 09/15/2021 SED RATE (ESR) 07/18/2023 SED RATE (ESR) 03/25/2020 SED RATE (ESR) 11/17/2023 SED RATE (ESR) 12/15/2018 RETICULOCYTE COUNT,CORRECTED 01/17/2023 HEPATITIS B, C PROFILE 04/27/2018 URINALYSIS (UA) 03/25/2020 URINE CULTURE 03/25/2020 CBC WITH AUTO DIFF 07/18/2023 CBC WITH AUTO DIFF 07/23/2024 CBC WITH AUTO DIFF 04/16/2024 CBC WITH AUTO DIFF 11/17/2023 Uric Acid 04/16/2024 Uric Acid 11/17/2023 Uric Acid 07/18/2023 Uric Acid 07/23/2024 Lipid Panel 05/28/2021 Lipid Panel 04/16/2024 Lipid Panel 06/16/2021 Next Appt Details Provider Name:Des Carlinrne, 01/29/2025 02:15:00 PM, [address] [place] [address] [address], [place], [phone], Provider Name:Des Mercado, 2025 02:30:00 PM, [address] [place] [address] [address], [place], [phone], Insurance Providers Payer Name Payer Address Payer Phone Subscriber Number Group Number Insured Name Patient Relationship to Insured Coverage Start Date Coverage End Date MEDICARE NGS [address] [place] [phone] [id number] Osmany Sow Self - patient is the insured Displair [address] [place] [phone] [id number] Osmany Sow Self - patient is the insured Medical (General) History Medical History History ICD Code hypertension renal failure,mild gout thrombocytopenia,mild diverticulosis hemorrhoids,internal tubular adenomas of the colon 2008 sub-centimeter hyperdense cyst left kidn ey since 2011 marginal zone lymphoma Slip disc operation, Spinal stenosis Surgical History Surgery Date(Month/Year) No history Slip disc operation complete tooth extraction 10/2018 legionnairs disease. 03/15/[address] Gamez, tubular adenoma 2 009 bone marrow biopsy upper lumbar spine surgery February 2014 left inguinal herniorraphy appendectomy age 10 stent insertion for coronary artery dise ase cholecystectomy 1988 disc surgery on L4 -L5 1991 Hospitalization History Reason Date(Month/Year) No history
[2025-01-24 13:16] LABS: MANUAL DIFF FLAG NO
[2025-01-24 13:34] LABS: Basophils Percent Auto 0.6 % (0-2); Eosinophils Absolute Auto 0.1 X10*3/uL (0.0-0.4); Eosinophils Percent Auto 2.2 % (0-4); Hematocrit 38.7 % (42.0-52.0); Hemoglobin 12.5 g/dl (14.0-18.0); Imm Gran Abs Auto 0.03 X10*3/uL (0.00-0.03); Imm Gran Pct Auto 0.6 % (0.0-0.4); Lymphocytes Absolute Auto 0.7 X10*3/uL (1.2-4.9); Lymphocytes Percent Auto 13.1 % (20-40); Mean Corpuscular HGB Conc 32.3 g/dl (31.0-36.0); Mean Corpuscular Hemoglobin 30.4 pg (27.0-33.0); Mean Corpuscular Volume 94.2 fL (80.0-98.0); Mean Platelet Volume 10.1 fL (9.4-12.4); Monocytes Absolute Auto 0.4 X10*3/uL (0.1-1.2); Monocytes Percent Auto 7.4 % (2-11); Neutrophils Absolute Auto 3.8 x10*3/uL (2.0-8.3); Neutrophils Percent Auto 76.1 % (45-73); Red Blood Count 4.11 X10*6/uL (4.60-5.80); Red Cell Distribution Width 16.6 % (11.0-16.0)
[2025-01-24 13:43] LABS: Platelet Count 77 X10*3/uL (160-400)
[2025-01-24 14:00] LABS: Alanine Aminotransferase 18 U/L (0-40); Alkaline Phosphatase 120 U/L (39-117); Anion Gap 13 (12-20); Aspartate Amino Transferase 25 U/L (5-37); Blood Urea Nitrogen 25 mg/dL (9-16); Calcium 8.7 mg/dL (8.4-10.2); Carbon Dioxide 27 mmol/L (22-29); Chloride 108 mmol/L (96-108); Estimated Glomerular Filt Rate 38; Glucose Random 104 mg/dL (60-115); Potassium 4.2 mmol/L (3.3-5.1); Sodium 144 mmol/L (135-145); Total Protein 5.7 g/dL (6.5-8.0)
== END 2025-01-24 13:06 | disposition home or self-care (01) ==
LOC: HO.LAB 13:05
PROVIDERS: PCP Internal Medicine Medical Oncology; Visit Provider Internal Medicine Medical Oncology
DX: C85.83 Other specified types of non-Hodgkin lymphoma, intra-abdominal lymph nodes (principal)
CPT/HCPCS: 36415; 80053; 85025

== ENCOUNTER 2025-01-29 14:38 | Outpatient (REF) | payer MEDICARE, OTHER, SELFPAY ==
--- NOTE | ~2025-01-29 | XR_ITS ---
CLINICAL HISTORY: CHEST WALL PAIN 2 view chest x-ray. Comparison: None Findings: Heart size normal No acute fracture. Impression: Lungs are clear. No pneumothorax. This document has been electronically signed by: Brian Johnston MD on 01/30/2025 16:48:53
== END 2025-01-29 14:39 | disposition home or self-care (01) ==
LOC: HO.XRAY 14:38
PROVIDERS: PCP Internal Medicine Medical Oncology; Visit Provider Internal Medicine Medical Oncology
DX: R07.89 Other chest pain (principal)
CPT/HCPCS: 71046

== ENCOUNTER 2025-02-07 09:05 | Outpatient (REF) | payer MEDICARE, OTHER, SELFPAY ==
--- NOTE | ~2025-02-07 | US_ITS ---
CLINICAL HISTORY: Splenomegaly US ABDOMEN COMPLETE Comparison: None Findings: The visualized portions of the pancreas appear unremarkable. The visualized segments of the aorta and inferior vena cava are normal caliber. The right hepatic lobe measures 14.2 cm. The liver surface appears smooth. Right lobe length is 14.2 cm. There is no intrahepatic bile duct dilatation. Common bile duct measures 9 mm. Cholecystectomy. The main portal vein is antegrade. Right kidney length is 9.2 cm. No hydronephrosis. Limited visualization of the left kidney secondary to overlying bowel gas. Left kidney length is approximately 8.1 cm. No hydronephrosis. There is a tiny echogenic focus in the midpole. The spleen measures 15.0 cm in greatest diameter. There are few tiny calcified granulomas. No ascites. IMPRESSION: 1. Splenomegaly. 2. No evidence for hepatomegaly, cirrhosis or ascites. 3. Common bile ductal diameter is within normal limits status post cholecystectomy. 4. No hydronephrosis. Probable tiny left intrarenal calculus. This document has been electronically signed by: Airam Newsome DO on 02/07/2025 13:46:06
--- OUTSIDE RECORDS SUMMARY | 2025-02-07 09:45 | XMS_ITS ---
Author Organization Des Mercado III, MD Address [address] [place] [address] Care Team Providers Care Aba Therapist Name Role Phone Des Mercado Primary Care Provider Allergies Allergen (clinical drug ingredient) Drug/Non Drug Allergy documented on EMR Reaction Allergy Type Onset Date Status ciprofloxacin Ciprofloxacin HCl Pain in eyes Drug Allergy Active REASON FOR VISIT Marginal zone lymphoma, Thrombocytopenia, Hypertension, Gout, Postherpetic neuralgia Medications Medication SIG (Take, Route, Frequency, Duration) Notes Start Date End Date Status Albuterol Sulfate HFA 108 (90 Base) MCG/ACT 1 puff as needed Inhalation every 4 hrs 11/02/2023 Active traZODone HCl 50 mg TAKE 1 TABLET AT BED TIME DIRECTED Active predniSONE 20 MG 1 tablet Orally Once a day 11/02/2023 Active amLODIPine Besylate 5 mg TAKE 1 TABLET DAILY Active Atenolol 25 mg TAKE 1 TABLET DAILY Active Aspirin 81 81 MG 1 tablet Orally Once a day Active Terazosin HCl 5 mg TAKE 1 CAPSULE DAILY Active Pravastatin Sodium 20 mg TAKE 1 TABLET DAILY Active Gabapentin 300 mg TAKE 3 CAPSULES TWIC E A DAY Active Finasteride 5 mg TAKE 1 TABLET DAILY Active Allopurinol 100 mg 1 tablet orally once a day for 90 days Active Social History Tobacco Use: Social History [...] Non-User Ex-cigaret te smoker Vital Signs Temperature 97.2 degrees Fahrenheit 05/27/20 25 Blood pressure systolic 138 mm Hg 01/30/20 25 Blood pressure diastolic 63 mm Hg 025 Heart Rate 64 /min 01/29/2025 Height 68 in 01/29/2025 Weight 167 lbs 01/29/2025 BMI 25.39 kg/m2 01/29/2025 Encounters Encounter Location Date Provider Diagnosis Des Mercado III, MD [address] [place] [address] [address], [place] [id number] 01/29/2025 Des Mercado Marginal zone lympho ma of intra-abdominal lymph nodes C85.83 ; Essential hypertension I10 ; Thrombocytopenia D69.6 ; Former smoker Z87.891 ; Gout M10.9 ; Benign prostatic hyperplasia with lower urinary tract symptoms N40.1 ; Postherpetic neuralgia B02.29 and Overweight (BMI 25.0-29.9) E66.3 Assessments Encounter Date Diagnosis (ICD Code) Assessment Notes Treat ment Notes Treatment Clinical Notes 01/29/2025 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 There is no peripheral adenopathy or splenomegaly. The platelet count of 66,000. He has had no infections. Observation was continued. Treatment is not necessary at this time. 01/29/2025 Essential hypertensi on (ICD-10 - I10) His blood pressure remained stable and no change in his regimen was made. 01/29/2025 Thrombocytopenia (ICD-10 - D69.6) His platelet count has decreased to 66,000. He has had no bleeding.No change in his therapy is necessary. 01/29/2025 Former smoker (ICD-1 0 - Z87.891) He is highly motivated not to smoke and we have discussed at length strategies for maintaining abstinence in times of illness and distress. 01/29/2025 Gout (ICD-10 - M10.9) He has had no episodes of gout since his last visit. 01/29/2025 Benign prostatic hyperplasia with lower urinary tract symptoms (ICD-10 - N40.1) He arises from sleep once or twice a night to urinate. We have discussed lifestyle modification. 01/29/2025 Postherpetic neuralg ia (ICD-10 - B02.29) He takes the gabapentin occasionally now. He still says the pain is severe when it happens. 01/29/2025 Overweight (BMI 25.0-29.9) (ICD-10 - E66.3) He is slightly overweight. I suggested he stabilize his weight at this level and maintain a healthy diet. Plan Of Treatment Medication Medication Name Sig Start Date Stop Date Notes Albuterol Sulfate HFA 108 (9 0 Base) MCG/ACT 1 puff as needed Inhalation every 4 hrs 11/02/2023 traZODone HCl 50 mg TAKE 1 TABLET AT BED TIME DIRECTED predniSONE 20 MG 1 tablet Orally Once a day 11/02/2023 amLODIPine Besylate 5 mg TAKE 1 TABLET DAILY Atenolol 25 mg TAKE 1 TABLET DAILY Aspirin 81 81 MG 1 tablet Orally Once a day Terazosin HCl 5 mg TAKE 1 CAPSULE DAILY Pravastatin Sodium 20 mg TAKE 1 TABLET DAILY Gabapentin 300 mg TAKE 3 CAPSULES TWICE A DAY Finasteride 5 mg TAKE 1 TABLET DAILY Allopurinol 100 mg 1 tablet orally once a day for 90 days Pending Test Test Name Order Date XR CHEST 2 VIEW PA & LAT 01/29/2025 US ABD 01/29/2025 Next Appt Details Follow Up: 1 Week, Reason: [facility] Provider Name:Des Mercado, 02/08/2025 03:15:00 PM, [address] [place] [address] [address], [place], [phone], Provider Name:Des Mercado, 2025 02:30:00 PM, [address] [place] [address] [address], [place], [phone], Progress Notes * Osmany SOW WDOB:[birth year] (89 yo M)Acc No.[id number]:01/29/2025 Progress Notes Patient:?Osmany SOW W Provider:?Des Mercado MD :[id number]???Age:89 Y???Sex:Male Scottie e:01/29/2025 Address:[address], [id number] Subjective: * Chief Complaints: * ???Marginal zone lymphomaThr ombocytopeniaHypertensionGoutPostherpetic neuralgia * HPI: ???COVID-19 Screening:?He returns to the office for ongoing management of several medical issues.? In the recent past he had a pleuritic left upper quadrant abdominal pain which has now become very minor.? He is breathing without difficulty.? He complains of nocturia once a night.? He has had no bleeding.? He denies any fever or chills.? On physical examination the spleen could not be palpated.? There was no adenopathy.? The lymphoma appears to be in continuous remission since his last treatment.? His vital signs were stable.His appetite has been good.? The postherpetic neuralgia as well controlled and a minor issue at this time. ?Questions?Have you had any new onset fever, chills, cough, congestion, sore throat, shortness of breath, muscle aches??No * ROS:?General/Constitutional:?pain?Resolving left upper quadrant abdominal pain with inspiration much improved now.?Chills?denies.?Fatigue?admits.?Fever?denies.?ENT:?Decreased hearing?mild.?Respiratory:?Cough?denies.?Cardiovascular:?Chest pain with exertion?denies.?Dyspnea on exertion?denies.?Shortness of breath?with exertion.?Gastrointestinal:?Constipation?denies.?Decreased appetite?denies.?Diarrhea?denies.?Heartburn?denies.?Nausea?denies.?Rectal bleeding?denies.?Vomiting?denies.?Hematology:?bruising?denies.?petechiae?denies.?Swollen glands?none have been noted.?Genitourinary:?Frequent urination?once a night.?Musculoskeletal:?Muscle aches?denies.?Painful joints?denies.?Sciatica?denies.?Weakness?that is generalized.?Skin:?Itching?denies.?Rash?denies.?Skin lesion(s)?denies.?Neurologic:?Difficulty speaking?denies.?Dizziness?denies.?Headache?denies.?Low back pain?denies.?Psychiatric:?Depressed mood?denies.? 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 He was born in [place], [place]. * Medications:?TakingGabapenti n 300 mg Capsule TAKE 3 CAPSULES TWICE A DAY Allopurinol 100 mg Tablet TAKE 1 TABLET DAILY Terazosin HCl 5 mg Capsule TAKE 1 CAPSULE DAILY Pravastatin Sodium 20 mg Tablet TAKE 1 TABLET DAILY Atenolol 25 mg Tablet TAKE 1 TABLET DAILY amLODIPine Besylate 5 mg Tablet TAKE 1 TABLET DAILY Aspirin 81 81 MG Tablet Delayed Release 1 tablet Orally Once a day Albuterol Sulfate HFA 108 (90 Base) MCG/ACT Aerosol Solution 1 puff as needed Inhalation every 4 hrs predniSONE 20 MG Tablet 1 tablet Orally Once a day traZODone HCl 50 mg Tablet TAKE 1 TABLET AT BEDTIME DIRECTED Finasteride 5 mg Tablet TAKE 1 TABLET DAILY Taking Gabapentin 300 mg Capsule TAKE 3 CAPSULES TWICE A DAY Taking Allopurinol 100 mg Tablet TAKE 1 TABLET DAILY Taking Terazosin HCl 5 mg Capsule TAKE 1 CAPSULE DAILY Taking Pravastatin Sodium 20 mg Tablet TAKE 1 TABLET DAILY Taking Atenolol 25 mg Tablet TAKE 1 TABLET DAILY Taking amLODIPine Besylate 5 mg Tablet TAKE 1 TABLET DAILY Taking Aspirin 81 81 MG Tablet Delayed Release 1 tablet Orally Once a day Taking Albuterol Sulfate HFA 108 (90 Base) MCG/ACT Aerosol Solution 1 puff as needed Inhalation every 4 hrs Taking predniSONE 20 MG Tablet 1 tablet Orally Once a day Taking traZODone HCl 50 mg Tablet TAKE 1 TABLET AT BEDTIME DIRECTED Taking Finasteride 5 mg Tablet TAKE 1 TABLET DAILY DiscontinuedpredniSONE 20 MG Tablet Oral Albuterol Sulfate 108 (90 Base) MCG/ACT Aerosol Powder Breath Activated 1 puff as needed Inhalation every 4 hrs Medication List reviewed and reconciled with the patientDiscontinued predniSONE 20 MG Tablet Oral Discontinued Albuterol Sulfate 108 (90 Base) MCG/ACT Aerosol Powder Breath Activated 1 puff as needed Inhalation every 4 hrs Medication List reviewed and reconciled with the patient * Allergies:?Ciprofloxacin HCl : Pain in eyes - Allergyno[Allergies Verified] Objective: * Vitals:?Ht: 68, Wt:167, BMI: 25.39, BP:138/63, HR:64, Temp:97.2, Ht-cm: 172.72, Wt-k.75. * ???Past Orders: Lab:Complete Blood Count Aut o Diff * Collection Date 01/24/2025 11/26/2024 07/17/2024 Collection Time 01:15 PM 02:01 PM 12:14 PM Order Date 01/24/2025 11/26/2024 07/17/2024 White Blood Count 5.0 (Ref Range: 4.8-10.8 X10*3/uL) 4.8 (Ref Range: 4.8-10.8 X10*3/uL) 5.4 (Ref Range: 4.8-10.8 X10*3/uL) Red Blood Count 4.11?L (Ref Range: 4.60-5.80 X10*6/uL) 4.35?L (Ref Range: 4.60-5.80 X10*6/uL) 4.04?L (Ref Range: 4.60-5.80 X10*6/uL) Hemoglobin 12.5?L (Ref Range: 14.0-18.0 g/dl) 13.3?L (Ref Range: 14.0-18.0 g/dl) 12.5?L (Ref Range: 14.0-18.0 g/dl) Hematocrit 38.7?L (Ref Range: 42.0-52.0 %) 40.4?L (Ref Range: 42.0-52.0 %) 37.7?L (Ref Range: 42.0-52.0 %) Mean Corpuscular Volume 94.2 (Ref Range: 80.0-98.0 fL) 92.9 (Ref Range: 80.0-98.0 fL) 93.3 (Ref Range: 80.0-98.0 fL) Mean Corpuscular Hemoglobin 30.4 (Ref Range: 27.0-33.0 pg) 30.6 (Ref Range: 27.0-33.0 pg) 30.9 (Ref Range: 27.0-33.0 pg) Mean Corpuscular HGB Conc 32.3 (Ref Range: 31.0-36.0 g/dl) 32.9 (Ref Range: 31.0-36.0 g/dl) 33.2 (Ref Range: 31.0-36.0 g/dl) Red Cell Distribution Width 16.6?H (Ref Range: 11.0-16.0 %) 16.6?H (Ref Range: 11.0-16.0 %) 16.1?H (Ref Range: 11.0-16.0 %) Platelet Count 77?L (Ref Range: 160-400 X10*3/uL) 66?L (Ref Range: 160-400 X10*3/uL) 70?L (Ref Range: 160-400 X10*3/uL) Mean Platelet Volume 10.1 (Ref Range: 9.4-12.4 fL) 9.4 (Ref Range: 9.4-12.4 fL) 10.3 (Ref Range: 9.4-12.4 fL) Neutrophils Percent Auto 76.1?H (Ref Range: 45-73 %) 75.0?H (Ref Range: 45-73 %) 79.9?H (Ref Range: 45-73 %) Imm Gran Pct Auto 0.6?H (Ref Range: 0.0-0.4 %) 0.6?H (Ref Range: 0.0-0.4 %) 0.6?H (Ref Range: 0.0-0.4 %) Lymphocytes Percent Auto 13.1?L (Ref Range: 20-40 %) 15.8?L (Ref Range: 20-40 %) 11.5?L (Ref Range: 20-40 %) Monocytes Percent Auto 7.4 (Ref Range: 2-11 %) 6.7 (Ref Range: 2-11 %) 6.7 (Ref Range: 2-11 %) Eosinophils Percent Auto 2.2 (Ref Range: 0-4 %) 1.7 (Ref Range: 0-4 %) 0.9 (Ref Range: 0-4 %) Basophils Percent Auto 0.6 (Ref Range: 0-2 %) 0.2 (Ref Range: 0-2 %) 0.4 (Ref Range: 0-2 %) NRBC Pct Auto 0.0 (Ref Range: 0.0-0.2 /100WBC) 0.0 (Ref Range: 0.0-0.2 /100WBC) 0.0 (Ref Range: 0.0-0.2 /100WBC) Neutrophils Absolute Auto 3.8 (Ref Range: 2.0-8.3 x10*3/uL) 3.6 (Ref Range: 2.0-8.3 x10*3/uL) 4.3 (Ref Range: 2.0-8.3 x10*3/uL) Imm Gran Abs Auto 0.03 (Ref Range: 0.00-0.03 X10*3/uL) 0.03 (Ref Range: 0.00-0.03 X10*3/uL) 0.03 (Ref Range: 0.00-0.03 X10*3/uL) Lymphocytes Absolute Auto 0.7?L (Ref Range: 1.2-4.9 X10*3/uL) 0.8?L (Ref Range: 1.2-4.9 X10*3/uL) 0.6?L (Ref Range: 1.2-4.9 X10*3/uL) Monocytes Absolute Auto 0.4 (Ref Range: 0.1-1.2 X10*3/uL) 0.3 (Ref Range: 0.1-1.2 X10*3/uL) 0.4 (Ref Range: 0.1-1.2 X10*3/uL) Eosinophils Absolute Auto 0.1 (Ref Range: 0.0-0.4 X10*3/uL) 0.1 (Ref Range: 0.0-0.4 X10*3/uL) 0.1 (Ref Range: 0.0-0.4 X10*3/uL) Basophils Absolute Auto 0.0 (Ref Range: 0.0-0.2 X10*3/uL) 0.0 (Ref Range: 0.0-0.2 X10*3/uL) 0.0 (Ref Range: 0.0-0.2 X10*3/uL) NRBC Abs Auto 0.000 (Ref Range: 0.0-0.012 X10*3/uL) 0.000 (Ref Range: 0.0-0.012 X10*3/uL) 0.000 (Ref Range: 0.0-0.012 X10*3/uL) * Lab:Uric Acid * Collection Date 11/26/2024 07/17/2024 04/12/2024 Collection Time 02:01 PM 12:14 PM 02:16 PM Order Date 11/26/2024 07/17/2024 04/12/2024 Uric Acid 6.5 (Ref Range: 3.4-7.0 mg/dL) 6.0 (Ref Range: 3.4-7.0 mg/dL) 6.5 (Ref Range: 3.4-7.0 mg/dL) * Lab:Comprehensive Met. Panel * Collection Date 01/24/2025 11/26/2024 02/01/2024 Collection Time 01:15 PM 02:01 PM 01:48 PM Order Date 01/24/2025 11/26/2024 02/01/2024 Sodium 144 (Ref Range: 135-145 mmol/L) 142 (Ref Range: 135-145 mmol/L) 145 (Ref Range: 135-145 mmol/L) Bilirubin Total 1.0 (Ref Range: 0.0-1.0 mg/dL) 0.9 (Ref Range: 0.0-1.0 mg/dL) 0.6 (Ref Range: 0.0-1.0 mg/dL) Aspartate Amino Transferase 25 (Ref Range: 5-37 U/L) 21 (Ref Range: 5-37 U/L) 16 (Ref Range: 5-37 U/L) Alanine Aminotransferase 18 (Ref Range: 0-40 U/L) 14 (Ref Range: 0-40 U/L) 13 (Ref Range: 0-40 U/L) Total Protein 5.7?L (Ref Range: 6.5-8.0 g/dL) 5.9?L (Ref Range: 6.5-8.0 g/dL) 5.9?L (Ref Range: 6.5-8.0 g/dL) Albumin Level 4.0 (Ref Range: 3.5-5.0 g/dL) 4.1 (Ref Range: 3.5-5.0 g/dL) 4.1 (Ref Range: 3.5-5.0 g/dL) Alkaline Phosphatase 120?H (Ref Range: 39-117 U/L) 117 (Ref Range: 39-117 U/L) 107 (Ref Range: 39-117 U/L) Potassium 4.2 (Ref Range: 3.3-5.1 mmol/L) 4.9 (Ref Range: 3.3-5.1 mmol/L) 4.5 (Ref Range: 3.3-5.1 mmol/L) Chloride 108 (Ref Range: 96-108 mmol/L) 110?H (Ref Range: 96-108 mmol/L) 110?H (Ref Range: 96-108 mmol/L) Carbon Dioxide 27 (Ref Range: 22-29 mmol/L) 26 (Ref Range: 22-29 mmol/L) 26 (Ref Range: 22-29 mmol/L) Anion Gap 13 (Ref Range: 12-20) 11?L (Ref Range: 12-20) 14 (Ref Range: 12-20) Blood Urea Nitrogen 25?H (Ref Range: 9-16 mg/dL) 34?H (Ref Range: 9-16 mg/dL) 21?H (Ref Range: 9-16 mg/dL) Creatinine 1.70?H (Ref Range: 0.5-1.4 mg/dL) 1.85?H (Ref Range: 0.5-1.4 mg/dL) 1.72?H (Ref Range: 0.5-1.4 mg/dL) Estimated Glomerular Filt Rate 38 35 38 Glucose Random 104 (Ref Range: 60-115 mg/dL) 114 (Ref Range: 60-115 mg/dL) 129?H (Ref Range: 60-115 mg/dL) Calcium 8.7 (Ref Range: 8.4-10.2 mg/dL) 8.7 (Ref Range: 8.4-10.2 mg/dL) 9.0 (Ref Range: 8.4-10.2 mg/dL) * Lab:Lactate Dehydrogenase * Collection Date 11/26/2024 07/17/2024 02/01/2024 Collection Time 02:01 PM 12:14 PM 01:48 PM Order Date 11/26/2024 07/17/2024 02/01/2024 Lactate Dehydrogenase 215 (Ref Range: 118-273 U/L) 221 (Ref Range: 118-273 U/L) 194 (Ref Range: 118-273 U/L) * Examination: ???General Examination: ?GENERAL APPEARANCE:?pleasant, well nourished, well developed, in no acute distress, calm and relaxed, overweight, elderly man.?HEAD:?atraumatic, normocephalic.?EYES:?eomi, perrla, anicteric, conjugate.?EARS:?normal.?NOSE:?septum intact.?ORAL CAVITY:?normal, unremarkable.?NECK/THYROID:?no jugular venous distention, no carotid bruit, thyroid normal, Mild decreased range of motion in all directions.?LYMPH NODES:?no enlarged lymph nodes,spleen normal.?SKIN:?no suspicious lesions, anicteric, Old faded herpetic scars left side of face and scalp.?HEART:?no clicks, gallops, murmurs, or rubs, regular rhythm, S1, S2 normal, no s3, or vascular bruits.?LUNGS:?clear to auscultation .?BREASTS:??no masses palpable bilaterally.?ABDOMEN:?bowel sounds normal, no ascites, no organomegaly, no mass, overweight, Left upper quadrant benign spleen not palpable no rub.?RECTAL EXAM:?not examined.?MUSCULOSKELETAL:?extremities unremarkable, no clubbing, cyanosis or edema.?PERIPHERAL PULSES:?normal.?NEUROLOGIC:?alert and oriented, cranial nerves 2-12 grossly intact, deep tendon reflexes 2+ symmetrical, motor strength normal upper and lower extremities, sensory exam intact.?PSYCH:?alert, oriented, cognitive function intact, thought process logical, goal directed, speech clear.? 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 There is no peripheral adenopathy or splenomegaly. The platelet count of 66,000. He has had no infections. Observation was continued. Treatment is not necessary at this time.???2.?Essential [...] no episodes of gout since his last visit.???6.?Benign prostatic hyperplasia with lower urinary tract symptoms - N40.1???Notes :He arises from sleep once or twice a night to urinate. We have discussed lifestyle modification.???7.?Postherpetic neuralgia - B02.29???Notes :He takes the gabapentin occasionally now. He still says the pain is severe when it happens.???8.?Overweight (BMI 25.0-29.9) - E66.3???Notes :He is slightly overweight. I suggested he stabilize his weight at this level and maintain a healthy diet.??? Plan: * Treatment: 2.?Others? Continue Finasteride Tablet, 5 mg, TAKE 1 TABLET DAILY;?Continue Allopurinol Tablet, 100 mg, 1 tablet, orally, once a day, 90 days, 90 Tablet, Refills 3;?Continue Terazosin HCl Capsule, 5 mg, TAKE 1 CAPSULE DAILY;?Continue Pravastatin Sodium Tablet, 20 mg, TAKE 1 TABLET DAILY;?Continue Atenolol Tablet, 25 mg, TAKE 1 TABLET DAILY;?Continue amLODIPine Besylate Tablet, 5 mg, TAKE 1 TABLET DAILY;?Continue Aspirin 81 Tablet Delayed Release, 81 MG, 1 tablet, Orally, Once a day;?Continue traZODone HCl Tablet, 50 mg, TAKE 1 TABLET AT BEDTIME DIRECTED.?? * Imaging:? * ?Imaging: XR CHEST 2 VIE W PA & LAT * Procedure Codes:? * Preventive Medicine:? ??Counseling:?Care goal follow-up plan:?Counseling for abnormal BMI given?Yes ?Above Normal BMI Follow-up?Dietary management education, guidance, and counseling ?Smoking/Tobacco Use?Patient counseled on the dangers of tobacco use and urged to quit.?01/29/2025 * Follow Up:?1 Week (Reason: [facility]) * Images: * Sign off status: Completed true * Provider:?Des Mercado MD Date:?01/04 Generated for Printi ng/Faxing/eTransmitting on:?02/07/2025 09:45 AM EDT History and Physical Notes * HPI [...] venous di stention, no carotid bruit, thyroid normal, Mild decreased range of motion in all directions HEART: no clicks, gallops, murmurs, or rubs, regular rhythm, S1, S2 normal, no s3, or vascular bruits LUNGS: clear to auscultatio n ABDOMEN: bowel sounds normal, no ascites, no organomegaly, no mass, overweight, Left upper quadrant benign spleen not palpable no rub NEUROLOGIC: alert and oriented, cranial nerves 2-12 grossly intact, deep tendon reflexes 2+ symmetrical, motor strength normal upper and lower extremities, sensory exam intact SKIN: no suspicious lesion s, anicteric, Old faded herpetic scars left side of face and scalp PERIPHERAL PULSES: normal BREASTS: no masses palpable b ilaterally MUSCULOSKELETAL: extremities unremark able, no clubbing, cyanosis or edema LYMPH NODES: no enlarged lymph no ivory,spleen normal RECTAL EXAM: not examined PSYCH: alert, oriented, cog nitive function intact, thought process logical, goal directed, speech clear ORAL CAVITY: normal, unremarkable
== END 2025-02-07 09:06 | disposition home or self-care (01) ==
LOC: HO.US 09:05
PROVIDERS: PCP Internal Medicine Medical Oncology; Visit Provider Internal Medicine Medical Oncology
DX: C85.83 Other specified types of non-Hodgkin lymphoma, intra-abdominal lymph nodes (principal); R16.1 Splenomegaly, not elsewhere classified
CPT/HCPCS: 76700